=== PATIENT | female | born 1955 | race Caucasian/White ===

== ENCOUNTER 2021-02-15 21:17 | Emergency (ER) | payer BC, SELFPAY ==
--- NOTE | 2021-02-15 | ECG_ITS ---
Test Reason : CHEST PAIN Blood Pressure : / mmHG Vent. Rate : 063 BPM Atrial Rate : 063 BPM P-R Int : 190 ms QRS Dur : 086 ms QT Int : 424 ms P-R-T Axes : 010 -03 034 degrees QTc Int : 433 ms Normal sinus rhythm Septal infarct , age undetermined Inferior infarct , age undetermined Abnormal ECG No previous ECGs available Referred By: Generic ED Physician Electronically Signed By:Chang Olivo
--- NOTE | ~2021-02-15 | US_ITS ---
EXAMINATION: US ABDOMEN LIMITED CLINICAL INFORMATION: Epigastric, right upper quadrant pain. COMPARISON: None TECHNIQUE: Real-time imaging of the right upper quadrant abdominal viscera. FINDINGS: PANCREAS: Normal. LIVER: The liver is normal in size. The liver contour is normal. Diffusely increased hepatic echogenicity and sound attenuation. No focal hepatic lesion. There is no intrahepatic biliary duct dilatation seen. GALLBLADDER: Normal. The gallbladder is physiologically distended without evidence of stones, sludge, polyps, wall thickening or pericholecystic fluid. COMMON BILE DUCT: Normal in caliber measuring 0.4 cm in diameter. RIGHT KIDNEY: Normal. No hydronephrosis. No renal calculi or focal parenchymal lesions. The kidney measures 11.1 cm in maximum dimension. FREE FLUID: None. US/US abdomen limited IMPRESSION: There is diffusely increased hepatic echogenicity and sound attenuation consistent with diffuse hepatic steatosis.
[2021-02-15 21:22] VITALS: BP 140/75; BP 155/77; PULSE 62; PULSE 80; RESP 18; TEMP 36.6; O2SAT 97; O2SAT 98; BMI 34.5
[2021-02-15 21:35] VITALS: BP 155/77; PULSE 62; RESP 18; TEMP 36.7; O2SAT 97
--- NOTE | 2021-02-15 21:45 | ED.CHESTPAIN ---
HPI - Chest Pain General Chief Complaint: Chest Pain Stated Complaint: chest pain Time Seen by Provider: 02/15/21 21:35 Source: patient Mode of arrival: ambulatory Limitations: no limitations History of Present Illness HPI narrative: patient comes to emergency room complaining of epigastric pain. Patient states it started this morning, patient states the pain has been there on time, but recently started getting more sharp. Patient denies vomiting having any diarrhea. When patient was coming to Emergency Room EMS gave her 324 mg of aspirin. MD complaint: chest pain Related Data Previous Rx's Medication Instructions Recorded omeprazole 20 mg PO DAILY #14 tab 02/15/21 Allergies Allergy/AdvReac Type Severity Reaction Status Date / Time Penicillins Allergy Severe Swelling Verified 02/15/21 21:28 Review of Systems Review of Systems: Constitutional : No Weight loss, No Fever, No Chills, No Night Sweats, No Fatigue, No Malaise ENT/Mouth : No Hearing loss, No Ear Pain, No Nasal Congestion, No Sinus Pain, No Hoarseness, No sore throat, No Rhinorrhea, No Swallowing Difficulty Eyes: No Eye Pain, No Swelling, No Redness, No Foreign Body, No Discharge, No Vision Changes Cardiovascular : Epigastric pain, chest pressure, No SOB, No Dyspnea on Exertion, No Orthopnea, No Edema, No Palpitations Respiratory : No Cough, No Sputum, No Wheezing, No Smoke Exposure, No Dyspnea Gastrointestinal : No Nausea, No Vomiting, No Diarrhea, No Constipation, complaining of epigastric pain, No Hematochezia, No Melena Genitourinary : no irregular bleeding, No Dysuria, No Urinary Frequency, No Hematuria, No Urinary Incontinence, No Urgency, No Flank Pain, No Urinary Flow Changes, No Hesitancy Musculoskeletal : No joint pain, No Myalgias, No Joint Swelling Skin : No Skin Lesions, No rash Neuro : No Weakness, No Numbness, No Paresthesias, No Loss of Consciousness, No Dizziness, No Headache Psych : No Anxiety/Panic, No Depression, No SI/HI/AH/VH, No Social Issues, Heme/Lymph: No Bruising, No Bleeding,No Lymphadenopathy Endocrine : No Polyuria, No Polydipsia, No Temperature Intolerance PMFSH Past Medical History Medical History HTN (hypertension) Hyperlipemia Surgical History History of bladder surgery History of partial hysterectomy Hx of removal of ovary Social History Social History Advance Directives: No Advance Directives Information Provided: Yes Patient : No Physical Exam Vital Signs: Vital Signs: Last Vital Signs Temp 98.0 F 02/15/21 21:35 Pulse 62 02/15/21 21:35 Resp 18 02/15/21 21:35 BP 155/77 H 02/15/21 21:35 Pulse Ox 97 02/15/21 21:35 Body Mass Index 34.5 Appearance: Alert. Oriented X3. No acute distress. Eyes: Pupils equal, round and reactive to light. ENT: Pharynx normal. Neck: Normal inspection. Neck supple. No lymph nodes noted. No crepitus CVS: Normal heart rate and rhythm. Pulses normal. Normal S1 and S2 Respiratory: No respiratory distress. Breath sounds normal. No Wheezing. No rales Abdomen: Soft , mild positive Ambriz sign, No rigidity. No distention. good BS x4 Skin: Skin warm and dry. Normal skin color. Normal skin turgor. Extremities: No lower extremity edema. No lower extremity edema. No Lacerations. No Rash Neuro: Oriented X 3. No motor deficit. No sensory deficit. Moving all extermities. No slurred speech. Course Reevaluation(s) Reevaluation #1: I discussed the labs and imaging with the patient, no acute findings. Patient may have peptic ulcer disease. At this time, patient has no pain MDM - Chest Pain Lab Data Result diagrams: 02/15/21 22:15 02/15/21 22:15 Labs: Lab Results 02/15/21 02/15/21 02/15/21 Range/Units 22:15 22:15 22:15 WBC 8.0 (4.8-10.8) X10*3/uL RBC 4.29 (4.20-5.50) X10*6/uL Hgb 13.4 (12.0-16.0) g/dl Hct 39.9 (37-47) % MCV 93.0 (80-98) fL MCH 31.2 (27.0-33.0) pg MCHC 33.6 (31.0-35.0) g/dl RDW 12.4 (11.0-16.0) % Plt Count 199 (160-400) X10*3/uL MPV 10.9 (9.4-12.3) fL Immature Gran % (Auto) 0.3 (0.0-0.4) % Neut % (Auto) 72.9 (45-73) % Lymph % (Auto) 18.0 L (20-40) % [place] % (Auto) 7.9 (2-11) % Eos % (Auto) 0.5 (0-4) % Baso % (Auto) 0.4 (0-2) % Lymph # (Auto) 1.4 (1.2-4.9) X10*3/uL [place] # (Auto) 0.6 (0.1-1.2) X10*3/uL Eos # (Auto) 0.0 (0.0-0.4) X10*3/uL Baso # (Auto) 0.0 (0.0-0.2) X10*3/uL Abs Immat Gran (auto) 0.02 (0.00-0.03) X10*3/uL Absolute Neuts (auto) 5.8 (2.0-8.3) X10*3/uL Absolute Nucleated RBC 0.000 (0.0-0.012) X10*3/uL Nucleated RBC % (auto) 0.0 (0.0-0.2) /100WBC Sodium 140 (135-145) mmol/L Potassium 4.0 (3.3-5.1) mmol/L Chloride 105 (96-108) mmol/L Carbon Dioxide 25 (22-29) mmol/L Anion Gap 14 (12-20) BUN 15 (9-16) mg/dL Creatinine 0.77 (0.5-1.4) mg/dL Estim Creat Clear Calc 87.8 Estimated GFR > 60 Random Glucose 118 H (60-115) mg/dL Calcium 9.6 (8.4-10.2) mg/dL Total Bilirubin 0.7 (0.0-1.0) mg/dL Direct Bilirubin 0.3 (0.0-0.5) mg/dL AST 19 (5-31) U/L ALT 18 (0-31) U/L Alkaline Phosphatase 95 (39-117) U/L Troponin I High Sens (<3.5-17.0) ng/L Total Protein 6.9 (6.5-8.0) g/dL Albumin 4.3 (3.5-5.0) g/dL Lipase 15 (8-78) U/L 02/15/ Range/Units 22:15 WBC (4.8-10.8) X10*3/uL RBC (4.20-5.50) X10*6/uL Hgb (12.0-16.0) g/dl Hct (37-47) % MCV (80-98) fL MCH (27.0-33.0) pg MCHC (31.0-35.0) g/dl RDW (11.0-16.0) % Plt Count (160-400) X10*3/uL MPV (9.4-12.3) fL Immature Gran % (Auto) (0.0-0.4) % Neut % (Auto) (45-73) % Lymph % (Auto) (20-40) % [place] % (Auto) (2-11) % Eos % (Auto) (0-4) % Baso % (Auto) (0-2) % Lymph # (Auto) (1.2-4.9) X10*3/uL [place] # (Auto) (0.1-1.2) X10*3/uL Eos # (Auto) (0.0-0.4) X10*3/uL Baso # (Auto) (0.0-0.2) X10*3/uL Abs Immat Gran (auto) (0.00-0.03) X10*3/uL Absolute Neuts (auto) (2.0-8.3) X10*3/uL Absolute Nucleated RBC (0.0-0.012) X10*3/uL Nucleated RBC % (auto) (0.0-0.2) /100WBC Sodium (135-145) mmol/L Potassium (3.3-5.1) mmol/L Chloride (96-108) mmol/L Carbon Dioxide (22-29) mmol/L Anion Gap (12-20) BUN (9-16) mg/dL Creatinine (0.5-1.4) mg/dL Estim Creat Clear Calc Estimated GFR Random Glucose (60-115) mg/dL Calcium (8.4-10.2) mg/dL Total Bilirubin (0.0-1.0) mg/dL Direct Bilirubin (0.0-0.5) mg/dL AST (5-31) U/L ALT (0-31) U/L Alkaline Phosphatase (39-117) U/L Troponin I High Sens < 3.5 (<3.5-17.0) ng/L Total Protein (6.5-8.0) g/dL Albumin (3.5-5.0) g/dL Lipase (8-78) U/L Imaging Data US - abdomen: Radiologist's impression: FINDINGS: PANCREAS: Normal. LIVER: The liver is normal in size. The liver contour is normal. Diffusely increased hepatic echogenicity and sound attenuation. No focal hepatic lesion. There is no intrahepatic biliary duct dilatation seen. GALLBLADDER: Normal. The gallbladder is physiologically distended without evidence of stones, sludge, polyps, wall thickening or pericholecystic fluid. COMMON BILE DUCT: Normal in caliber measuring 0.4 cm in diameter. RIGHT KIDNEY: Normal. No hydronephrosis. No renal calculi or focal parenchymal lesions. The kidney measures 11.1 cm in maximum dimension. FREE FLUID: None. US/US abdomen limited IMPRESSION: There is diffusely increased hepatic echogenicity and sound attenuation consistent with diffuse hepatic steatosis. ECG Data ECG #1: Attestation: I personally reviewed and interpreted this ECG as follows: ( sinus rhythm, heart rate 63, no ST segment depression or elevation, no T-wave inversion, QTC 433) Discharge Plan Discharge Clinical Impression: Abdominal pain Qualifiers: Abdominal location: epigastric Qualified Code(s): R10.13 - Epigastric pain Patient Disposition: Home, Self-Care Instructions: Peptic Ulcer (ED), Abdominal Pain (ED) Additional Instructions: Please follow-up with your primary care physician tomorrow. If you have any worsening or new symptoms, please return to the emergency room or call 911 Prescriptions: New omeprazole 20 mg tablet,delayed release (DR/EC) 20 mg PO DAILY Qty: 14 RF: 0
[2021-02-15 22:24] LABS: MANUAL DIFF FLAG NO
[2021-02-15 22:25] LABS: Basophils Percent Auto 0.4 % (0-2); Eosinophils Percent Auto 0.5 % (0-4); Hematocrit 39.9 % (37-47); Hemoglobin 13.4 g/dl (12.0-16.0); Imm Gran Abs Auto 0.02 X10*3/uL (0.00-0.03); Imm Gran Pct Auto 0.3 % (0.0-0.4); Lymphocytes Absolute Auto 1.4 X10*3/uL (1.2-4.9); Mean Corpuscular HGB Conc 33.6 g/dl (31.0-35.0); Mean Corpuscular Hemoglobin 31.2 pg (27.0-33.0); Mean Platelet Volume 10.9 fL (9.4-12.3); Monocytes Absolute Auto 0.6 X10*3/uL (0.1-1.2); Monocytes Percent Auto 7.9 % (2-11); Neutrophils Absolute Auto 5.8 X10*3/uL (2.0-8.3); Neutrophils Percent Auto 72.9 % (45-73); Platelet Count 199 X10*3/uL (160-400); Red Blood Count 4.29 X10*6/uL (4.20-5.50); Red Cell Distribution Width 12.4 % (11.0-16.0)
[2021-02-15 22:44] LABS: Anion Gap 14 (12-20); Blood Urea Nitrogen 15 mg/dL (9-16); Calcium 9.6 mg/dL (8.4-10.2); Carbon Dioxide 25 mmol/L (22-29); Chloride 105 mmol/L (96-108); Creatinine Clr Calc Pharmacy 87.8; Estimated Glomerular Filt Rate > 60; Glucose Random 118 mg/dL (60-115); Sodium 140 mmol/L (135-145)
[2021-02-15 22:48] LABS: Alanine Aminotransferase 18 U/L (0-31); Albumin Level 4.3 g/dL (3.5-5.0); Alkaline Phosphatase 95 U/L (39-117); Aspartate Amino Transferase 19 U/L (5-31); Bilirubin Direct 0.3 mg/dL (0.0-0.5); Bilirubin Total 0.7 mg/dL (0.0-1.0); Lipase 15 U/L (8-78); Total Protein 6.9 g/dL (6.5-8.0)
[2021-02-15 22:51] LABS: Troponin-I High Sensitivity < 3.5 ng/L (<3.5-17.0)
== END 2021-02-16 00:38 | disposition home or self-care (01) ==
PROVIDERS: Emergency Provider Emergency Medicine; PCP Internal Medicine
DX: R10.13 Epigastric pain (principal); I10 Essential (primary) hypertension
CPT/HCPCS: 36415; 76705; 80048; 80076; 83690; 84484; 85025; 93005; 99283; 99284

== ENCOUNTER 2021-09-29 15:12 | Emergency (ER) | payer OTHER, SELFPAY ==
--- NOTE | ~2021-09-29 | CT_ITS ---
EXAMINATION: CT HEAD WITHOUT CONTRAST CT CERVICAL SPINE WITHOUT CONTRAST CLINICAL INFORMATION: Neck pain after falling. COMPARISON: None. TECHNIQUE: Contiguous axial imaging was performed from the skull base to vertex without intravenous administration of contrast. Contiguous axial imaging was performed from the upper chest through the skull base without intravenous administration of contrast. Coronal and sagittal reformats were obtained at the acquisition workstation. This CT examination was performed using dose optimization techniques as appropriate, variously including the following: *Automated exposure control *Adjustment of mA and/or kV according to patient size (this includes techniques or standardized protocols for targeted exams where dose is matched to indication/reason for exam; i.e. extremities or head) *Use of iterative reconstruction technique DLP: 381 mGy-cm FINDINGS: Head: There is no evidence of acute intracranial hemorrhage or edematous territorial infarction. A few foci of hypoattenuation in the periventricular and deep white matter are consistent with mild microangiopathy. Bravo-white matter differentiation is preserved. The ventricles are normal in size and configuration. No evidence for obstructive hydrocephalus. No abnormal mass effect or midline shift. No extra-axial fluid collections. No acute soft tissue or osseous abnormalities. 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 The mastoid air cells and paranasal sinuses are clear. Cervical Spine: The atlantooccipital and atlantoaxial articulations remain well aligned. Straightening of the normal cervical lordosis. Otherwise, there is anatomic alignment of the vertebral bodies and posterior elements. No evidence of acute fracture or subluxation. Moderate multilevel cervical spondylosis with disc space narrowing, osteophytes and facet arthropathy leading to varying degrees of neural foraminal encroachment and central canal stenosis. There is no prevertebral soft tissue swelling. There are prominent coarse calcifications in the right lobe of the thyroid. The remaining cervical soft tissues are normal in appearance. The lung apices demonstrate no abnormalities. CT/CT cervical spine wo con IMPRESSION: 1. No acute intracranial pathology. 2. No acute cervical spine fractures or malalignment. 3. Indeterminate calcifications in the right lobe of the thyroid, recommend correlation with a nonemergent thyroid ultrasound.
[2021-09-29 15:33] VITALS: BP 159/94; PULSE 67; RESP 18; TEMP 36.8; O2SAT 96; BMI 35.5
--- NOTE | 2021-09-29 16:16 | ED.FALL ---
HPI - Fall General Chief Complaint: Fall Stated Complaint: fell on her neck at work Time Seen by Provider: 09/29/21 16:05 Source: patient Mode of arrival: ambulatory Limitations: no limitations History of Present Illness HPI Narrative: 66-year-old female presents to ED for neck pain after falling. Patient states around 09:00 she is walking and ice and she slipped and fell between 2 parked cars. Patient denies her body hitting any of the cars. Patient states she fell straight to the ground on her head. Once again cars were parked and did not hit her or run over her. Patient denies no other complaints. Patient is not on any blood thinners. Patient states no chest pain, shortness of breath, coughing up blood, pain extremities, rectal bleeding, dizziness, or weakness. Related Data Previous Rx's Medication Instructions Recorded omeprazole 20 mg tablet,delayed 20 mg PO DAILY #14 tab 02/15/21 release cyclobenzaprine 10 mg tablet 10 mg PO TID PRN #21 tab 09/29/21 naproxen 500 mg tablet 500 mg PO BID PRN 10 Days #20 tab 09/29/21 prednisone 20 mg tablet 60 mg PO DAILY 5 Days #15 tab 09/29/21 Allergies Allergy/AdvReac Type Severity Reaction Status Date / Time Penicillins Allergy Severe Swelling Verified 09/29/21 15:33 Review of Systems Review of Systems: Upper neck upper back Yes all other systems are reviewed and are negative [facility] Past Medical History Medical History HTN (hypertension) Hyperlipemia Surgical History History of bladder surgery History of partial hysterectomy Hx of removal of ovary Social History Social History Advance Directives: No Advance Directives Information Provided: Yes Patient : No Physical Exam Vital Signs: Vital Signs: Last Vital Signs Temp 98.2 F 09/29/21 15:33 Pulse 72 09/29/21 17:47 Resp 16 09/29/21 17:47 BP 126/80 09/29/21 17:47 Pulse Ox 96 09/29/21 17:47 BMI result Body Mass Index 35.5 Const: General: cooperative, healthy appearing, comfortable, no acute distress, well developed, alert and awake Orientation/consciousness: patient oriented x3 HENMT: Head: Yes normal to inspection, Yes No palpable skull fracture present, Yes normocephalic and No atraumatic Eyes: General: appearance normal, both eyes and all related structures Neck: Neck: Yes normal visual inspection, Yes full ROM, Yes no lymphadenopathy, Yes no meningeal signs, Yes trachea midline, Yes supple, No anterior neck swelling and Yes tender (posterior cervical tenderness on palpation) Neck images: 1. posterior cervical spine tenderness on palpation. Chest: Chest palpation & inspection: normal inspection of the chest Resp: Effort & Inspection: normal respiratory effort and able to speak in complete sentences Cardio: Jugular venous distension: no JVD Heart sounds: S1 normal heart sound present and S2 normal heart sound present GI: Inspection: Yes normal to inspection and No abdominal wall ecchymosis Palpation (GI): Soft to palpation, not firm, nontender, no guarding and not rigid : General: No CVA tenderness and Yes no CVA tenderness Back/Spine/Pelvis: Back: no CVA tenderness, No CVA tenderness and No back tenderness Skin: General skin exam: no rashes or lesions noted and elasticity normal Neuro: General: patient oriented x3, gait normal, no meningeal signs and CN's II-XI intact bilaterally Cranial nerves: Yes CN's II-XII intact bilaterally Extrem: General: Yes normal to inspection and Yes full ROM Psych: Appearance: grossly normal, well kempt and not disheveled Course Course Course Narrative: Patient will be sent for head and neck CT scan. Tylenol ordered Reevaluation(s) Reevaluation #1: Images came back negative for any fracture or brain bleeds. Patient will be discharged with NSAIDs and muscle relaxers Time: 17:51 MDM - Fall [facility] Narrative Medical decision making narrative: Fall. Neck pain. Discharge Plan Discharge Clinical Impression: Neck pain, Fall, Head injury Patient Disposition: Home, Self-Care Instructions: Head Injury (ED), Acute Neck Pain (ED) Additional Instructions: Cervical spine CT and head CT came back normal. CT scan shows calcification on the right thyroid. Recommend follow-up with primary care provider for ultrasound of thyroid. Return to the ED for nausea, vomiting, tingling of upper extremities, abdominal pain, chest pain, shortness of breath, bleeding, vomiting blood severe headache, worsening neck pain, or any other concerning symptoms. Please follow-up with [facility]. Prescriptions: New cyclobenzaprine 10 mg tablet 10 mg PO TID PRN (Reason: muscle spasm) Qty: 21 0RF Rx Instructions: side effect is drowsiness. Do not take at work or while driving. naproxen 500 mg tablet 500 mg PO BID PRN (Reason: pain) 10 Days Qty: 20 0RF prednisone 20 mg tablet 60 mg PO DAILY 5 Days Qty: 15 0RF No Action omeprazole 20 mg tablet,delayed release (DR/EC) 20 mg PO DAILY Qty: 14 0RF Referrals: [facility] [Outside] - 2 days (Fall at work.) Stand Alone Forms: Work/School Release Interventions: ED Discharge Assessment Last Done: 09/29/21 18:11 Discharge Date/Time: 09/29/21 18:11 Print Language: Albanian
[2021-09-29] MEDS: Acetaminophen 325 MG TABLET 650 MG PO (16:19)
[2021-09-29 17:47] VITALS: BP 126/80; PULSE 72; RESP 16; O2SAT 96
[2021-09-29] MEDS: Ibuprofen 800 MG TABLET PO (17:55)
== END 2021-09-29 18:11 | disposition home or self-care (01) ==
PROVIDERS: Emergency Provider Emergency Medicine; PCP Internal Medicine
DX: S09.90XA Unspecified injury of head, initial encounter (principal); W00.0XXA Fall on same level due to ice and snow, initial encounter; M54.2 Cervicalgia; Y93.89 Activity, other specified; Y92.014 Private driveway to single-family (private) house as the place of occurrence of the external cause; Y99.9 Unspecified external cause status
CPT/HCPCS: 70450; 72125; 99284

== ENCOUNTER → 2021-10-02 09:17 | Outpatient (BNVA) | payer OTHER, SELFPAY | PROVIDERS: PCP Internal Medicine; Visit Provider Physician Assistant | DX: S09.90XA Unspecified injury of head, initial encounter (principal); S19.9XXA Unspecified injury of neck, initial encounter; W19.XXXA Unspecified fall, initial encounter | CPT/HCPCS: 99203 ==

== ENCOUNTER 2025-07-08 18:19 | Emergency (ER) | payer MEDICARE, SELFPAY ==
--- OUTSIDE RECORDS SUMMARY | 2025-07-03 09:00 | XMS_ITS | Encounter Summary ---
Author Organization [facility] Address [address] [place] [address] Care Team Providers Care Interlocking Installer Name Role Phone Tuyet Schofield MD Primary Care Pr ovider Reason for Visit * Imaging (Routine) - Closed Specialty Diagnoses / Procedures Referred By Contac t Referred To Contact Cardiology Diagnoses PVC (premature ventricular contraction) Palpitations Procedures Transthoracic echocardiogram (TTE) complete with PRN contrast, bubble, strain, and 3D order panel TN TTE W 2D IMAGE COMPLETE W DOPPLER ECHO & COLOR FLOW DOPPLER ECHO TN ROSIO 2D COMPLETE W/CONTRAST OR W & WO CONTRAST WITH DOPPLER Lillian Locke MD [address] [place] [address] Dr Champion [address] [place] [phone] Phone: tel: fax: [facility] Referral ID Status Reason Start Date Expiration Date Visits Re quested Visits Authorized [id number] Closed 12/28/2024 12/28/2025 1 1 Encounter Details Date Type Department Care Team (Latest Contact Info) Description 07/03/2025 9:00 AM EST Ancillary Procedure [facility] - [address] [place] [phone] PVC (premature ventricular contraction); Palpitations Social History Tobacco Use Types Packs/Day Years Used Date Smoking Tobacco: Never Smokeless Tobacco: Never Alcohol Use Standard Drinks/Week Comments Yes 0 (1 standard drink = 0.6 oz pur e alcohol) wine - 1 glass per wk Housing Instability Answer Date Recorde d Are you worried that in the next 2 months you may not have stable housing? Patient declined 05/18/2025 Food Access & Nutrition Answer Date Rec orded Do you have access to a vari ety of food including fruits and vegetables? Patient declined 05/18/2025 Health Literacy Answer Date Recorded How often do you need to hav e someone help you when you read instructions, pamphlets, or other written material from your doctor or pharmacy? Patient declined 05/18/2025 Caregiver: How often do you need to have someone help you when you read instructions, pamphlets, or other written material from your doctor or pharmacy? Not on file 025 Financial Risk Answer Date Recorded How hard is it for you to pa y for the very basics like food, housing, medical care, and air conditioning / heating? Patient declined 05/18/2025 Transportation Answer Date Recorded Has the lack of transportati on kept you from meetings, work, or from getting things needed for daily living? Patient declined 05/18/2025 Has the lack of transportati on kept you from medical appointments or from getting medications? Patient declined 05/18/2025 Social Isolation Answer Date Recorded How often do you feel lonely or isolated from those around you? Patient declined 05/18/2025 Food Risk Answer Date Recorded Within the past 12 months we worried whether our food would run out before we got money to buy more. Patient declined 025 Within the past 12 months th e food we bought just didn't last and we didn't have money to get more. Patient declined 04/24 Dependent Care Answer Date Recorded Do you need help finding or paying for care for your loved ones. For example, child protective investigator or elderly care for an older adult? Patient declined 05/18/2025 Education Answer Date Recorded Do you think completing more education or training, like finishing a GED, going to college, or learning a trade, would be helpful for you? Patient declined 05/18/2025 Employment and Income Answer Date Recor ded During the last four weeks, have you been actively looking for work? Patient declined 05/18/2025 Living Situation Answer Date Recorded What is your living situation? Unrecognized valu e 05/18/2025 Comments No Sex and Gender Information Value Date Recorded Sex Assigned at Not on file Legal Sex Female 10:22 PM EST Gender Identity Not on file Sexual Orientation Not on file documented as of this encounter Last Filed Vital Signs Vital Sign Reading Time Taken Comments Blood Pressure 141/84 07/03/2025 9:12 AM EST Pulse - - Temperature - - Respiratory Rate - - Oxygen Saturation - - Inhaled Oxygen Concentration - - Weight 100 kg (221 lb) 07/03/2025 9:12 AM EST Height 165.1 cm (5' 5 ) 07/03/2025 9:12 AM EST Body Mass Index 36.78 07/03/2025 9:12 AM EST documented in this encounter Plan of Treatment Upcoming Encounters Date Type Department Care Team (Late st Contact Info) Description 08/14/2025 11:00 AM EST Office Visit Urogynecology [address] [phone] Linda Sharp MD [address] [place] [address] [address] [place] [address] 09/03/2025 1:10 PM EST Office Visit [facility] [address] [place] [phone] Felicia Cornell NP [address] [place] [address] Dr Champion [address] [place] [phone] 09/20/2025 2:00 PM EST Consult [facility] - [place] [address] [facility] [address] [place] [address] Arun Pierce MD [address] [place], [place] [phone] 10/30/2025 3:15 PM EDT Office Visit Bariatric Surgery - [place] [address] [facility] [address] [place] [address] Michelle García PA [address] [place] [phone] 11/15/2025 11:00 AM EDT Office Visit [facility] [address] [phone] Tuyet Schofield MD 4 [place], [place] documented as of this encounter Procedures Procedure Name Priority Date/Time Associated Diagnosis Comments TRANSTHORACIC ECHOCARDIOGRAM (TTE) COMPLETE W/ CONTRAST Routine 07/03/2025 2:08 PM EST PVC (premature ventricular contraction) Palpitations documented in this encounter Results * (ABNORMAL) TRANSTHORACIC ECHOCARDIOGRAM (TTE) COMPLETE W/ CONTRAST (07/03/2025 2:08 PM EST) Left Atrium Minor [place] 6.1 cm CV PACS Left Atrium Major [place] 6.3 cm CV PACS LA Area Sys (A2C) 25 cm2 CV PACS LA Area Sys (A4C) 25 cm2 CV PACS LA Volume (BP) 82 mL CV PACS RA Area 13.3 cm2 CV PACS RA 2D Volume 32 mL CV PACS AV Mean Gradient 1 mmHg CV PACS AV Mean Gradient 1 mmHg CV PACS Ao VTI 21.3 cm CV PACS AV Peak Arturo 0.9 m/s CV PACS AV Peak Gradient 3 mmHg CV PACS AV Area Continuity Equation 3.9 cm2 CV PACS AV Area Peak Velocity 4.1 cm2 CV PACS Aortic Arch 2.8 cm CV PACS Ascending Aorta 3.4 cm CV PACS Aortic Sinus Valsalva 3.5 cm CV PACS IVC Proximal 1.5 cm CV PACS IVSD 1.1(A) 0.6 - 0.9 cm CV PACS LVIDD 5.3(A) 3.8 - 5.2 cm CV PACS LVIDS 3.4 2.2 - 3.5 cm CV PACS LVOT Diameter 2.4 cm CV PACS LVOT Mean Arturo 0.5 m/s CV PACS LVOT Mean Grad 1 mmHg CV PACS LVOT Mean Grad 1 mmHg CV PACS LVOT Peak VTI 18.4 cm CV PACS LVOT Peak Arturo 0.8 m/s CV PACS LVOT Peak Gradient 2 mmHg CV PACS LVPWD 1.1(A) 0.6 - 0.9 cm CV PACS MV E' Tissue Velocity Lateral 9 cm/s CV PACS MV E' Tissue Velocity Septal 5 cm/s CV PACS LVOT Area 4.5 cm2 CV PACS LVOT Stroke Volume 83 mL CV PACS MV Deceleration [place] 4.0 m/s2 CV PACS E Wave Deceleration Time 183 119 - 242 ms CV PACS MV PHT 54 ms CV PACS MV Peak A Arturo 0.80 m/s CV PACS MV Peak E Arturo 0.78 m/s CV PACS MV Mean Gradient 1 mmHg CV PACS MV Mean Gradient 1 mmHg CV PACS MV Mean Gradient 1 mmHg CV PACS MV Mean Gradient 1 mmHg CV PACS MV VTI 26.3 cm CV PACS Mitral Valve Max Velocity 0.9 m/s CV PACS MV Peak Gradient 3 mmHg CV PACS MV Area PHT 4.1 cm2 CV PACS MV Area Continuity Equation 3.2 cm2 CV PACS PV Acceleration Time 60 ms CV PACS PV Acceleration Time 127 ms CV PACS PV Acceleration Time 94 ms CV PACS PV Mean Gradient 1 mmHg CV PACS PV VTI 13.5 cm CV PACS PV Peak Velocity 0.6 m/s CV PACS PV Peak Gradient 1 mmHg CV PACS RV Diastolic Basal Dimension 3.9 2.5 - 4.1 cm CV PACS RV S' 8 cm/s CV PACS TAPSE 18 mm CV PACS TR Peak Velocity 2.17 m/s CV PACS TR Peak Gradient 19 mmHg CV PACS E/E' Ratio Septal 16 CV PACS E/E' Ratio Averaged 12 CV PACS LVOT Stroke Index 40 mL/m2 CV PACS Relative Wall Thickness ratio 0.42 CV PACS LVOT:AV VTI Index 0.86 CV PACS FS 36 % CV PACS LV Mass 2D 228 g CV PACS Ascending Aorta Index 1.65 cm/m2 CV PACS MV VTI:LVOT VTI ratio 1.4 CV PACS LVOT flow 226 mL/s CV PACS RA 2D Volume Index 16 mL/m2 CV PACS [place] Index (VTI) 1.90 cm2/m2 CV PACS [place] Index (Pk Arturo) 1.99 cm2/m2 CV PACS LVIDD Index 2.57 cm/m2 CV PACS LVIDS Index 1.65 cm/m2 CV PACS AV Velocity Ratio 0.89 CV PACS E/A Ratio 1.0 CV PACS E/E' Ratio Lateral 9 CV PACS LA Volume Index (BP) 40 mL/m2 CV PACS LV Mass Index 2D 111 g/m2 CV PACS BSA 2.14 m2 CV PACS Right Ventricular Peak Systolic Pressure 22 mmHg CV PACS Est. RA Pressure 3 mmHg CV PACS Anatomical Region Laterality Modality Ultrasound Narrative 07/06/2025 10:30 AM EST Left Ventricle: Left ventricle cavity size is normal. There is mild concentric hypertrophy. Systolic function is normal with an ejection fraction of 60-65%. There are no regional LV wall motion abnormalities. Indeterminate diastolic function. Right Ventricle: Right ventricle cavity appears normal. Systolic function is normal. Normal TAPSE (> 17 mm). Left Atrium: Left atrium cavity is mildly dilated. Right Atrium: Right atrium cavity is normal. Mitral Valve: There is trace regurgitation. No previous echocardiogram available for comparison. Left Ventricle Left ventricle cavity size is normal. There is mild concentric hypertrophy. Systolic function is normal with an ejection fraction of 60-65%. There are no regional LV wall motion abnormalities. Indeterminate diastolic function. Right Ventricle Right ventricle cavity appears normal. Systolic function is normal. Normal TAPSE (> 17 mm). Left Atrium Left atrium cavity is mildly dilated. Right Atrium Right atrium cavity is normal. IVC/SVC Inferior vena cava structure is normal. RA pressures is estimated to be 3 mmHg (IVC diameter <21 mm and decreases >50% during inspiration). Mitral Valve The leaflets are mildly thickened. There is mild annular calcification. There is trace regurgitation. There is no evidence of mitral valve stenosis. Tricuspid Valve Tricuspid valve structure is normal. There is no significant regurgitation. The right ventricular systolic pressure is normal. Aortic Valve Number of aortic valve cusps cannot be determined. The leaflets are mildly thickened. There is no regurgitation or stenosis. Pulmonic Valve There is trace pulmonic valve regurgitation. Ascending Aorta The aorta appears normal in size. Pericardium Pericardium appears normal. There is no pericardial effusion. Study Details Overall the study quality was technically difficult. Definity contrast was given to enhance imaging. us Lillian Locke MD CV ECHO PROCEDURES Final Resul t documented in this encounter Visit Diagnoses Diagnosis PVC (premature ventricular contraction) Other premature beats Palpitations documented in this encounter Administered Medications Inactive Administered Medications - up to 3 most recent administrations Medication Order MAR Action Action Date Dose Rate Site perflutren lipid microsphere (DEFINITY) 1.3 mL in sodium chloride 0.9% 8.7 mL injection 10 mL, intravenous, Administer over 10 Minutes, Once in imaging, Starting on Wed07/03/25 at 1409, For 1 dose Given 07/03/2025 2:09 PM EST 3 mL documented in this encounter Orders Medications Ordered That Amaury ht Not Have Been Administered Count Last Ordered Date First Ordered Date perflutren lipid microsphere (DEFINITY) 1.3 mL in sodium chloride 0.9% 8.7 mL injection 1 07/03/2025 documented in this encounter Additional Health Concerns Assessment Noted Time PHQ-9 Depression Total Score: 0 05/18/20 25 10:26 AM EDT documented as of this encounter Care Teams Interlocking Installer Relationship Specialty Start Date End Date Tuyet Schofield MD [address] [place] [address] PCP - General Internal Medicine 03/17/22 documented as of this encounter
--- OUTSIDE RECORDS SUMMARY | 2025-07-05 10:20 | XMS_ITS | Encounter Summary ---
Author Organization [facility] Address [address] [place] [address] Care Team Providers Care Cloth Inspector Name Role Phone Tuyet Schofield MD Primary Care Pr ovider Reason for Referral * Imaging (Routine) - Authorized Specialty Diagnoses / Procedures Referred By Contac t Referred To Contact Radiology Diagnoses Abnormal liver ultrasound Procedures MR Abdomen wo Contrast Felicia Goldsmith PA [address] [place], [place] Phone: tel: fax: [address] Phone: tel: Referral ID Status Reason Start Date Expiration Date V isits Requested Visits Authorized [id number] Authorized 06/07/2025 06/07/2026 1 1 Reason for Visit * Imaging (Routine) - Authorized Specialty Diagnoses / Procedures Referred By Contac t Referred To Contact Radiology Diagnoses Abnormal liver ultrasound Procedures MR Abdomen wo Contrast Felicia Goldsmith PA [address] [place] [address] Phone: tel: fax: [address] Phone: tel: Referral ID Status Reason Start Date Expiration Date V isits Requested Visits Authorized [id number] Authorized 06/07/2025 06/07/2026 1 1 Encounter Details Date Type Department Care Team (Latest Contact Info) Description 07/05/2025 10:20 AM EST - 07/05/2025 11:[address] [facility] Hospital Encounter Radiology Department - [address] [phone] Abnormal liver ultrasound Discharge Disposition: Home or Self Care Social History Tobacco Use Types Packs/Day Years [...] care for your loved ones. For example, vocational childcare teacher or elderly care for an older adult? [...] on file documented as of this encounter Medications at Time of Discharge amLODIPine (NORVASC) 10 mg tabletIndications: Primary hypertension Take 1 tablet (10 mg total) by mouth 1 (one) time each day. 90 each 1 05/18/2025 aspirin 81 mg EC tablet Take 1 tablet (81 mg total) by mouth 1 (one) time each day. atorvastatin (LIPITOR) 10 mg tabletIndications: Hypercholesterolem ia Take 1 tablet (10 mg total) by mouth at bedtime. 90 each 1 05/18/2025 6 calcium carb/vit D3/minerals (CALCIUM-VITAMIN D ORAL) Take by mouth. 09/25/2022 cholecalciferol (VITAMIN D-3) 50 mcg (2,000 unit) capsule Take 1 capsule (2,000 Units total) by mouth 1 (one) time each day. 05/17/2024 meloxicam (Mobic) 15 mg tablet Take 1 tablet (15 mg total) by mouth 1 (one) time each day if needed. 05/17/2024 metoprolol tartrate (LOPRESSOR) 25 mg tablet Take 1 tablet (25 mg total) by mouth 1 (one) time each day if needed (palps). documented as of this encounter Discharge Disposition Disposition Code Departure Means Destination Home or Self Care documented in this encounter Plan of Treatment Upcoming Encounters Date Type Department Care Team (Late st Contact Info) Description 08/14/2025 11:00 AM EST Office Visit Urogynecology - [place] [address] [place], [place] [phone] Linda Sharp MD [address] [place] [address] Rd [address] [place] [address] 09/03/2025 1:10 PM EST Office Visit [facility] - [facility] [address] [place] [phone] Felicia Cornell NP [address] [place] [address] Dr Champion [address] [place] [phone] 09/20/2025 2:00 PM EST Consult [facility] - [place] 175 [facility] [address] [place] [phone] Arun Pierce MD 175 [place], [place] [phone] 10/30/2025 3:15 PM EDT Office Visit Bariatric Surgery - [place] 175 [facility] [address] [place] [phone] Michelle García PA [address] [place] [phone] 11/15/2025 11:00 AM EDT Office Visit Adult Medicine [facility] [address] [place] [address] Tuyet Schofield MD [address] [place] [phone] documented as of this encounter Procedures Procedure Name Priority Date/Time Associated Diagnosis Comments MR ABDOMEN WO CONTRAST Routine 07/05/2025 11:23 AM EST Abnormal liver ultrasound documented in this encounter Results * MR Abdomen wo Contrast (07/05/2025 11:23 AM EST) Anatomical Region Laterality Modality Body Magnetic Resonan ce 07/05/2025 2:3 6 PM EST Impressions 07/05/2025 2:50 PM EST Hepatic steatosis. 0.6 cm cyst left lobe of the liver. No focal liver lesion identified to correspond to the ultrasound finding in the right lobe. Follow-up right upper quadrant ultrasound in 6 months is suggested. Normal MRCP. -------- FINAL REPORT -------- Dictated By: Vijaya Mendez Dictated Date: 07/05/2025 14:36 ET Assigned Physician: Vijaya Mendez Reviewed and Electronically Signed By: Vijaya Mendez Signed Date: 07/05/2025 14:50 ET Workstation ID: [id number] Transcribed By: Self Edit Transcribed Date: 07/05/2025 14:36 ET Narrative 07/05/2025 2:50 PM EST MRI ABDOMEN WITHOUT CONTRAST; MRCP HISTORY: Mass versus focal fatty sparing. MRI suggested for ultrasound abdomen. Technique: Multiplanar and multi sequential MR imaging of the abdomen per department protocol. Routine noncontrast MRCP pulse sequences were also obtained. The study is limited by motion. PRIOR: Abdominal ultrasound 05/31/2025. FINDINGS: Liver: There is a 0.6 cm T2 hyperintense lesion left lobe of the liver, corresponding to the cyst seen on the ultrasound. There are at least 3 other tiny T2 hyperintensities scattered in the liver, and these may represent cysts as well. There is diffuse decreased signal of the liver on the out of phase sequence consistent with diffuse fatty infiltration.. No intrahepatic biliary dilatation is seen. No calculi are seen within the extra- or intra-hepatic biliary system. Gallbladder: Unremarkable. Bile ducts: Common bile duct measures 5 millimeters in diameter. Pancreatic duct has a normal course and caliber. Pancreas: Unremarkable . Spleen: Unremarkable. Adrenal glands: Unremarkable . Kidneys: There is a 0.9 cm rounded hyperintense lesion in the midpole the right kidney, statistically representing a cyst. There are T2 hyperintensities likely representing parapelvic cysts in both kidneys. Stomach and visualized bowel: Unremarkable. Mesentery: Normal. Lymph nodes: Unremarkable. Vascular structures: Unremarkable. Free fluid: None. Abdominal wall: Unremarkable. Bones: Unremarkable. Lung bases: Clear. Procedure Note Vijaya Mendez MD - 07/05/2025 MRI ABDOMEN WITHOUT CONTRAST; MRCP HISTORY: Mass versus focal fatty sparing. MRI suggested for ultrasoundabdomen. Technique: Multiplanar and multi sequential MR imaging of the abdomen perdepartment protocol. Routine noncontrast MRCP pulse sequences were alsoobtained. The study is limited by motion. PRIOR: Abdominal ultrasound 05/31/2025. FINDINGS: Liver: There is a 0.6 cm T2 hyperintense lesion left lobe of the liver,corresponding to the cyst seen on the ultrasound. There are at least 3other tiny T2 hyperintensities scattered in the liver, and these mayrepresent cysts as well. There is diffuse decreased signal of the liver onthe out of phase sequence consistent with diffuse fatty infiltration.. Nointrahepatic biliary dilatation is seen. No calculi are seen within theextra- or intra-hepatic biliary system. Gallbladder: Unremarkable. Bile ducts: Common bile duct measures 5 millimeters in diameter.Pancreatic duct has a normal course and caliber. Pancreas: Unremarkable . Spleen: Unremarkable. Adrenal glands: Unremarkable . Kidneys: There is a 0.9 cm rounded hyperintense lesion in the midpole theright kidney, statistically representing a cyst. There are [id number] likely representing parapelvic cysts in both kidneys. Stomach and visualized bowel: Unremarkable. Mesentery: Normal. Lymph nodes: Unremarkable. Vascular structures: Unremarkable. Free fluid: None. Abdominal wall: Unremarkable. Bones: Unremarkable. Lung bases: Clear. IMPRESSION: Hepatic steatosis. 0.6 cm cyst left lobe of the liver. No focal liverlesion identified to correspond to the ultrasound finding in the rightlobe. Follow-up right upper quadrant ultrasound in 6 months issuggested. Normal MRCP. -------- FINAL REPORT -------- Dictated By: Vijaya Mendez Dictated Date: 07/05/2025 14:36 ET Assigned Physician: Vijaya Mendze Reviewed and Electronically Signed By: Vijaya Mendez Signed Date: 07/05/2025 14:50 ET Workstation ID: [id number] Transcribed By: Self Edit Transcribed Date: 07/05/2025 14:36 ET us Felicia MOREL IM MRI PROCEDURES Final Resu lt documented in this encounter Visit Diagnoses Diagnosis Abnormal liver ultrasound documented in this encounter Additional Health Concerns Assessment Noted Time PHQ-9 Depression Total Score: 0 05/18/20 25 10:26 AM EDT documented as of this encounter Care Teams Cloth Inspector Relationship Specialty Start Date End Date Tuyet Schofield MD [address] [facility] [place] [address] PCP - General Internal Medicine 03/17/22 documented as of this encounter
[2025-07-08 18:23] VITALS: BP 147/86; PULSE 70; O2SAT 99; BMI 37.4
[2025-07-08 18:28] VITALS: BP 163/81; PULSE 64; RESP 16; TEMP 36.9; O2SAT 96
--- NOTE | 2025-07-08 18:34 | ECG_ITS ---
Test Reason : HYPERTENSION Blood Pressure : */* mmHG Vent. Rate : 60 BPM Atrial Rate : 60 BPM P-R Int : 174 ms QRS Dur : 88 ms QT Int : 432 ms P-R-T Axes : 18 -5 27 degrees QTcB Int : 432 ms Sinus rhythm with occasional Premature ventricular complexes Inferior infarct (cited on or before 15-Feb-2021) Anterior infarct (cited on or before 15-Feb-2021) Abnormal ECG When compared with ECG of 15-Feb-2021 21:28, Premature ventricular complexes are now Present Referred By: Generic ED Physician Electronically Signed By: CARLOS REILLY
--- OUTSIDE RECORDS SUMMARY | 2025-07-08 19:01 | XMS_ITS | Clinical Summary ---
Author Organization [facility] [employer] [facility] Address [address] [facility] [address] [place] [address] Care Team Providers Care Patient Financial Rep Name Role Phone Unavailable Primary Care Provider Unavailabl e Immunizations Immunization Administration Dates Next Due Pfizer Covid-19 Vaccine 12+ Bivalent 08/20/2022 Social History Tobacco Use Types Packs/Day Years Used Date Smoking Tobacco: Never Assessed Comments Unknown Sex and Gender Information Value Date Recorded Sex Assigned at Female 08/20/2022 1:45 PM EST Legal Sex Female 1:43 PM EST Gender Identity Female 08/20/2022 1:45 PM EST Sexual Orientation Not on file Plan of Treatment Health Maintenance Due Date Last Done Comments CT Colonography 1957 Colonoscopy 1957 Colorectal Cancer Screening 1957 Depression Screening 1957 FIT DNA/Cologuard 1957 FIT 1957 FOBT 1957 Lipid Panel 1957 SDOH Screening 1957 Sigmoidoscopy 1957 Alcohol/Substance Use Screening 1969 Tobacco Screening 1969 Hepatitis C Screening 1975 Mammogram 1997 DTaP/Tdap/Td Vaccines (1 - Tdap) 11/22/1997 11/21/1997 Pneumococcal Vaccine: 50+ Years (1 of 1 - PCV) 2007 Zoster Vaccines (1 of 2) 2007 COVID-19 Vaccine (4 - 2024-2 6 season) 2025 08/20/2022, 12/03/2020, 11/12/2020 Influenza Vaccine (#1) 2025 RSV Patients and Patients Aged 60 years or older (1 - 1-dose 75+ series) 2032 HIB Vaccines Aged Out No longer eligi ble based on patient's age to complete this topic HPV Vaccines Aged Out No longer eligi ble based on patient's age to complete this topic Hepatitis A Vaccines Aged Out No long er eligible based on patient's age to complete this topic Hepatitis B Vaccines Aged Out No long er eligible based on patient's age to complete this topic IPV Vaccines Aged Out No longer eligi ble based on patient's age to complete this topic Meningococcal B Vaccine Aged Out No l onger eligible based on patient's age to complete this topic Meningococcal Vaccine Aged Out No jayla daniel eligible based on patient's age to complete this topic RSV under 20 months Aged Out No longe r eligible based on patient's age to complete this topic Rotavirus Vaccines Aged Out No longer eligible based on patient's age to complete this topic
--- OUTSIDE RECORDS SUMMARY | 2025-07-08 19:01 | XMS_ITS ---
Author Name [facility] Organization Unknown Care Team Organization Name Specialty Phone Email Start Date End Da te [facility] MISSY STRICKLAND Primary Care [email or web address] 10/28/2022 4 [facility] Immanuel Quiros Primary Care 08/31/202203/23 4 [facility] ISADORA Grajeda Primary Care 06/30/202203/23 4
--- OUTSIDE RECORDS SUMMARY | 2025-07-08 19:02 | XMS_ITS | Clinical Summary ---
Author Organization [facility] [address] [place] [address] [place] [phone] Phone Care Team Providers Care Set Up Mold Technician Name Role Phone Tuyet Schofield MD Primary Care Pr ovider Allergies Active Allergy Reactions Criticality Noted Date Comments Penicillins Swelling 08/13/2014 Medications cholecalciferol (VITAMIN D-3) 50 mcg (2,000 unit) capsule Take 1 capsule (2,000 Units total) by mouth 1 (one) time each day. 4 Active meloxicam (Mobic) 15 mg tablet Take 1 tablet (15 mg total) by mouth 1 (one) time each day if needed. 4 Active calcium carb/vit D3/minerals (CALCIUM-VITAMIN D ORAL) Take by mouth. 3 Active amLODIPine (NORVASC) 10 mg tabletIndications :Primary hypertension Take 1 tablet (10 mg total) by mouth 1 (one) time each day. 90 each 1 5 11/15/19 26 Active atorvastatin (LIPITOR) 10 mg tabletIndications :Hypercholesterol emia Take 1 tablet (10 mg total) by mouth at bedtime. 90 each 1 5 11/15/19 26 Active metoprolol tartrate (LOPRESSOR) 25 mg tablet Take 1 tablet (25 mg total) by mouth 1 (one) time each day if needed (palps). Active aspirin 81 mg EC tablet Take 1 tablet (81 mg total) by mouth 1 (one) time each day. Active semaglutide (Wegovy) 0.25 mg/0.5 mL injection pen Inject 0.25 mg under the skin every 7 (seven) days. 4 mL 07/02/20 25 Discontinu ed(Therapy completed) Hospital, Clinic, or Other Facility Administered Medication Ordered Dose Route Frequency Start Date End Date Status perflutren lipid microsphere (DEFINITY) 1.3 mL in sodium chloride 0.9% 8.7 mL injection 10 mL IV Once in imaging 06/21/2025 06/21/2025 End ed perflutren lipid microsphere (DEFINITY) 1.3 mL in sodium chloride 0.9% 8.7 mL injection 10 mL IV Once in imaging 07/03/2025 07/03/2025 End ed Active Problems Problem Noted Date Diagnosed Date PVC (premature ventricular contraction) 07/26/20 Assessment & Plan (11/15/2024 12:22 PM EDT): Will start metoprolol for management of the PACs/PVCS She will keep her upcoming appointment with cardiology in December Orders: metoprolol succinate (TOPROL-XL) 25 mg 24 hr tablet; Take 1 tablet (25 mg total) by mouth 1 (one) time each day. Do not crush or chew. PAC (premature atrial contraction) 07/26/2024 Assessment & Plan (11/15/2024 12:22 PM EDT): Will start metoprolol for management of the PACs/PVCS She will keep her upcoming appointment with cardiology in December Orders: metoprolol succinate (TOPROL-XL) 25 mg 24 hr tablet; Take 1 tablet (25 mg total) by mouth 1 (one) time each day. Do not crush or chew. Hemangioma of spine 06/07/2024 Assessment & Plan (06/30/2024 1:47 PM EST): Ms. Hernandez mentioned to her primary that when she bumps into something with her right hip she gets fleeting pain that radiates around to the back. It does not last and it does not radiate down the legs. Chart reviewed by her primary care doctor revealed a CT of the chest from 2020 and of the abdomen and pelvis from 2019 revealed a T10 hemangioma. Based on that, a new CT scan of the thoracic spine was performed revealing several hemangiomas in the thoracic and cervical spine that were stable as compared to the 2020 study. Also noted were two lucent lesions. One in the left lamina of T5 and one in the body of T11 both of which were stable at 1 cm compared to CTs from 2020 and 2019 respectively. The films were reviewed with Dr. Mcdaniel who questioned whether the lucent lesions were really small hemangiomas. There were no associated fractures or remodeling of the bone. Dr. Mcdaniel felt that in the absence of symptoms these were not concerning. Ms. Watson did not have any pain with palpation in these areas and does not have any suspicious past medical history. I offered to get a bone scan out of absolute thoroughness but told her that I did not see anything worrisome. She declined the bone scan. With regards to her fleeting low back pain, I was not able to reproduce it with motion of the hip, palpation of the hip or low back, or palpation of the SI joints. She said that it was not something that generally caused her regular discomfort just fleeting pain when she hit the hip. At this point, I do not think that there is much more for us to offer, but I offered that she could follow-up on an as-needed basis. Essential tremor 05/17/2024 Overview (06/08/2024): Benign head tremor; chronic and familial Vitamin D insufficiency 12/06/2023 Assessment & Plan (11/15/2024 12:22 PM EDT): Continue vitamin D 2000U daily DJD (degenerative joint disease), ankle and foot 03/25/2023 Prediabetes 09/11/2022 Assessment & Plan (11/15/2024 12:22 PM EDT): Will update labs Orders: Hemoglobin A1c; Future Comprehensive metabolic panel; Future Osteopenia of multiple sites 08/04/2022 Assessment & Plan (11/15/2024 12:22 PM EDT): Continue vitamin D 2000U daily Has DXA scan scheduled for November 28 at [facility] Pulmonary nodule 03/15/2020 Overview (06/08/2024): Stable Ct Chest 03/2021. Repeat 1 year. Subclinical hypothyroidism 03/14/2019 Assessment & Plan (11/15/2024 12:22 PM EDT): Last TSH wnl Thyroid nodule 11/16/2014 Obesity 08/21/2014 Assessment & Plan (11/15/2024 12:22 PM EDT): See HPI Counseled on the possible side effects of medication Will trial ozempic Has upcoming appt with weight management in May Orders: semaglutide (OZEMPIC) 0.25 mg or 0.5 mg (2 mg/3 mL) injection pen; Inject under the skin every 7 (seven) days. HTN (hypertension) 08/13/2014 Assessment & Plan (07/02/2025 9:15 AM EST): Continue on amlodipine and metoprolol. I have reviewed with the patient the importance of a heart healthy lifestyle which includes eating a low-fat low-salt diet, getting regular exercise, maintaining a healthy weight, not smoking, and following up with routine medical care. Assessment & Plan (11/15/2024 12:22 PM EDT): Still poorly controlled Increase amlodipine to 10mg daily Start metoprolol 25mg daily F/u in 4 weeks Orders: amLODIPine (NORVASC) 10 mg tablet; Take 1 tablet (10 mg total) by mouth 1 (one) time each day. Hypercholesterolemia 08/13/2014 Assessment & Plan (07/02/2025 9:15 AM EST): Continue on statin. Assessment & Plan (11/15/2024 12:22 PM EDT): For now, continue atorvastatin 10 mg nightly Will update fasting labs Orders: Lipid panel with reflex to direct LDL; Future Comprehensive metabolic panel; Future Goiter 08/13/2014 Encounters Date Type Department Care Team Description 07/05/2025 10:20 AM EST - 07/05/2025 11:59 PM EST Hospital Encounter Radiology Department - [address] [phone] Abnormal liver ultrasound Discharge Disposition: Home or Self Care 07/03/2025 9:00 AM EST Ancillary Procedure [facility] - [address] [place] [address] PVC (premature ventricular contraction); Palpitations 07/02/2025 8:10 AM EST Office Visit [facility] - [address] [place] [address] Felicia Cornell NP Pressure in chest (Primary Dx); Abnormal stress echo; Primary hypertension; Hypercholesterolemi a; Palpitations 06/21/2025 2:30 PM EDT Ancillary Procedure [facility] - [address] [place] [phone] Primary hypertension; Hypercholesterolemi a; Pressure in chest 06/01/2025 Telephone Bariatric Surgery - [place] [address] [place] [phone] Michelle García PA 05/31/2025 9:12 AM EDT - 05/31/2025 11:59 PM EDT Hospital Encounter Radiology Department - [address] [phone] Episode of dizziness; Blurred vision, bilateral Discharge Disposition: Home or Self Care 05/31/2025 9:11 AM EDT - 05/31/2025 11:59 PM EDT Hospital Encounter Radiology Department - [address] [phone] Hepatic steatosis Discharge Disposition: Home or Self Care 05/30/2025 10:30 AM EDT Consult Bariatric Surgery [facility] [address] [place] [phone] Michelle García PA Class 2 severe obesity due to excess calories with serious comorbidity and body mass index (BMI) of 37.0 to 37.9 in adult (Primary Dx); Primary hypertension; Hypercholesterolemi a; Prediabetes 05/24/2025 Results Follow-Up [address] [phone] Felicia Goldsmith PA 05/21/2025 10:41 AM EDT - 05/21/2025 11:59 PM EDT Hospital Encounter CT Scan [address] [phone] Episode of dizziness; Blurred vision, bilateral Discharge Disposition: Home or Self Care 05/18/2025 10:00 AM EDT Office Visit [address] [phone] Felicia Goldsmith PA Annual physical exam (Primary Dx); Primary hypertension; Hypercholesterolemi a; Prediabetes; Episode of dizziness; Blurred vision, bilateral; Pressure in chest; Nocturia; Hepatic steatosis; Elevated alkaline phosphatase level from Last 3 Months Immunizations Immunization Administration Dates Next Due Pneumococcal conjugate 20 va lent (Prevnar 20, PCV 20) 2mo and older 09/25/2022 Td Tetanus diptheria (Tdvax) 7yo and older 03/03,11/21/1997 Tdap Tetanus diptheria acell ular pertussis (Boostrix; Adacel) 7yo and older 03/12/2008 Surgical History Surgery Date Site/Laterality Comments HYSTERECTOMY 03/23/1994 PROCEDURE: HISTORICAL HYSTERECTOMY; COMMENT: 1 ovary left OTHER SURGICAL HISTORY 11/09/2019 Right PROCEDURE: [place] SALPINGO-OOPHORECTOMY COMPL/PRTL UNI/BI SPX; COMMENT: left removed with hysterectomy in 1993 Medical History Medical History Date Comments Hypercholesterolemia 08/13/2014 DX:Hypercho lesterolemia HTN (hypertension) 08/13/2014 DX:HTN (hyper tension) Goiter 08/13/2014 DX:Goiter Ovarian mass DX:Ovarian mass; COMMENT: Removed 10/2019. Benign Family History Medical History Relation Name Comments Coronary artery disease Father age 49 Hypertension Mother BCC on nose Other: cancer ovary Sister age 57 Breast cancer Neg Hx Colon cancer Neg Hx Lung cancer Neg Hx Relation Name Status Comments Father Mother Alive Sister Social History Tobacco Use Types Packs/Day Years Used Date Smoking Tobacco: Never Smokeless Tobacco: Never Tobacco Cessation:Counseling Given: Not Answered Alcohol Use Standard Drinks/Week Comments Yes 0 [...] for your loved ones. For example, child psychometrist or elderly care for an older adult? [...] on file Sexual Orientation Not on file Obstetrics History Last Filed Vital Signs Vital Sign Reading Time Taken Comments Blood Pressure 141/84 07/03/2025 9:12 AM EST Pulse 78 07/02/2025 8:14 AM EST Temperature 36.4 C (97.6 F) 05/30/2025 10:22 AM EDT Respiratory Rate 14 12/14/2024 9:15 AM EDT Oxygen Saturation 98% 07/02/2025 8:14 AM EST Inhaled Oxygen Concentration - - Weight 100 kg (221 lb) 07/03/2025 9:12 AM EST Height 165.1 cm (5' 5 ) 07/03/2025 9:12 AM EST Body Mass Index 36.78 07/03/2025 9:12 AM EST Plan of Treatment Upcoming Encounters Date Type Department Care Team (Late st Contact Info) Description 08/14/2025 11:00 AM EST Office Visit Urogynecology [address] [phone] Linda Sharp MD [address] [place] [address] [address] [place] [address] 09/03/2025 1:10 PM EST Office Visit [facility] [address] [place] [phone] Felicia Cornell NP [address] [place] [address] [address] [place] [address] 09/20/2025 2:00 PM EST Consult [facility] [place] - [place] [address] [place] [phone] Arun Pierce MD [address] [place] [address] 10/30/2025 3:15 PM EDT Office Visit Bariatric Surgery - [place] [address] [place] [address] Michelle García PA [address] [place] [address] 11/15/2025 11:00 AM EDT Office Visit Adult Medicine [facility] [address] [place] [address] Tuyet Schofield MD [address] [place] [address] Health Maintenance Due Date Last Done Comments RSV Immunization Adult Patients (1 - Risk 50-74 years 1-dose series) 2007 Zoster Vaccines (1 of 2) 2007 Falls Risk Assessment 08/01/2022 Medicare Annual Wellness Visit 08/01/2022 Colorectal Cancer Screening: FIT-DNA (Cologuard) 10/30/2025 10/30/2022, 10/30/2022 Hypertension/CHF/CAD Annual BMP Blood Test 05/18/2026 05/18/2025, 11/20/2024, 05/16/2024, Additional history exists Social Influencers of Health Screening 05/18/2026 05/18/2025 Breast Cancer Screening 11/17/2026 11/17/2024, 12/02 DTaP,Tdap,and Td Vaccines (4 - Td or Tdap) 03/03/2029 03/03/2019, 03/12/2008, 11/21/1997 Cholesterol Screening (Lipid Panel) 05/18/2030 05/18/2025, 11/20/2024, 05/16/2024, Additional history exists Osteoporosis Screening (Bone Density Screening) 12/21/2034 12/21/2024, 08/03/2022 Hepatitis C Screening Completed 09/12/2014 COVID-19 Vaccine Discontinued 08/20/2022, 04/2021, 12/03/2020, Additional history exists Pneumococcal Vaccine: 50+ Years Completed 09/25/2022 Depression Screening Completed 05/18/2025 HIB Vaccines Aged Out No longer eligi [...] on patient's age to complete this topic Influenza Vaccine Discontinued MMR Vaccines Aged Out No longer eligi ble based on patient's age to complete this topic Meningococcal ACWY Vaccine Aged Out N o longer eligible based on patient's age to complete this topic Meningococcal B Vaccine Aged Out No l onger eligible based on patient's age to complete this topic RSV Immunization Patients Under 20 months Aged Out No longer eligible based on patient's age to complete this topic Varicella Vaccines Aged Out No longer eligible based on patient's age to complete this topic Procedures Procedure Name Priority Date/Time Associated Diagnosis Comments MR ABDOMEN WO CONTRAST Routine 5 11:23 AM EST Abnormal liver ultrasound TRANSTHORACIC ECHOCARDIOGRAM (TTE) COMPLETE W/ CONTRAST Routine 07/03/2025 2:08 PM EST PVC (premature ventricular contraction) Palpitations STRESS ECHOCARDIOGRAM EXERCISE WITH CONTRAST Routine 06/21/2025 3:21 PM EDT Primary hypertension Hypercholesterolemia Pressure in chest VAS US DUPLEX CAROTID BILATERAL Routine 05/31/2025 9:59 AM EDT Episode of dizziness Blurred vision, bilateral US ABDOMEN LIMITED Routine 05/31/2025 9: 59 AM EDT Hepatic steatosis CT HEAD WO CONTRAST Routine 05/21/2025 1 0:43 AM EDT Episode of dizziness Blurred vision, bilateral ECG 12-LEAD TRACING ONLY Routine 05/18/2025 4:22 PM EDT Pressure in chest CBC WITH AUTO DIFFERENTIAL Routine 05/18/2025 10:51 AM EDT Annual physical exam CBC AND DIFFERENTIAL Routine 05/18/2025 10:51 AM EDT Annual physical exam COMPREHENSIVE METABOLIC PANEL Routine 05/18/2025 10:51 AM EDT Primary hypertension HEMOGLOBIN A1C Routine 05/18/2025 10:51 AM EDT Prediabetes THYROID STIMULATING HORMONE WITH REFLEX TO FREE T4 AND FREE T3 Routine 05/18/2025 10:51 AM EDT Annual physical exam LIPID PANEL WITH REFLEX TO DIRECT LDL Routine 05/18/2025 10:51 AM EDT Hypercholesterolemia PARATHYROID HORMONE INTACT Routine 05/18/2025 10:51 AM EDT Elevated alkaline phosphatase level BD BONE DENSITY DXA AXIAL SKELETON Routine 12/21/2024 11:09 AM EDT Other specified disorders of bone density and structure, unspecified site EXTERNAL MAMMOGRAM REPORT 11/17/2024 FIT-DNA Routine 10/30/2022 HEPATITIS C SCREENING Routine 09/12/2014 from Last 3 Months or Most Recently Relevant to Health Maintenance Results * MR Abdomen wo Contrast (07/05/2025 11:23 AM EST) Anatomical Region Laterality Modality Body Magnetic Resonan ce 07/05/2025 2:36 PM EST Impressions 07/05/2025 2:50 PM EST [...] Signed Date: 07/05/2025 14:50 ET Workstation ID: [id number] Transcribed By: Self Edit Transcribed Date: 07/05/2025 [...] kidney, statistically representing a cyst. There are [id number] likely representing parapelvic cysts in both kidneys. [...] Signed Date: 07/05/2025 14:50 ET Workstation ID: [id number] Transcribed By: Self Edit Transcribed Date: 07/05/2025 14:36 ET Felicia MOREL IMG MRI PROCEDURES Final Resu lt * (ABNORMAL) TRANSTHORACIC ECHOCARDIOGRAM (TTE) COMPLETE W/ CONTRAST (07/03/2025 2:08 PM EST) Left Atrium Minor [place] 6.1 cm CV PACS Left Atrium Major [place] 6.3 cm CV PACS LA Area Sys [...] Volume 83 mL CV PACS MV Deceleration [place] 4.0 m/s2 CV PACS E Wave Deceleration [...] MD CV ECHO PROCEDURES Final Resul t * (ABNORMAL) STRESS ECHOCARDIOGRAM EXERCISE WITH CONTRAST (06/21/2025 3:21 PM EDT) IVSD 0.9 0.6 - 0.9 cm CV PACS STRESS LVIDD 5.3(A) 3.8 - 5.2 cm CV PACS STRESS LVIDS 3.1 2.2 - 3.5 cm CV PACS STRESS LVPWD 0.9 0.6 - 0.9 cm CV PACS STRESS Relative Wall Thickness ratio 0.34 CV PACS STRESS FS 42 % CV PACS STRESS LV Mass 2D 175 g CV PACS STRESS LVIDD Index 2.56 cm/m2 CV PACS STRESS LVIDS Index 1.50 cm/m2 CV PACS STRESS LV Mass Index 2D 84 g/m2 CV PACS STRESS BSA 2.15 m2 CV PACS STRESS Target HR 129 bpm CV PACS STRESS Baseline HR 62 bpm CV PACS STRESS Baseline SBP 130 mmHg CV PACS STRESS Baseline DBP 86 mmHg CV PACS STRESS Peak HR 139 bpm CV PACS STRESS Peak SBP 160 mmHg CV PACS STRESS Peak DBP 80 mmHg CV PACS STRESS Rate Pressure Product 22,240.0 mmHg*bpm CV PACS STRESS Percent HR 91 % CV PACS STRESS Exercise/injec tion duration (min) 6 min CV PACS STRESS Exercise/injec tion duration (sec) 0 sec CV PACS STRESS Estimated workload 7.1 METS CV PACS STRESS Angina Index 0 CV PACS STRESS Anatomical Region Laterality Modality Ultrasound Narrative 06/21/2025 4:33 PM EDT Normal resting echo with preserved ejection fraction and no regional wall motion abnormalities. The ejection fraction is 60-65%. No obvious, significant valvular disease. The patient exercised on the treadmill on a Houston protocol for 6 minutes 0 seconds reaching at a workload of 7.1 METS. The patient had fatigue. The baseline EKG was normal sinus rhythm there were slight ST depression in the inferior leads noted. Post to stress echocardiogram showed hypokinesis/dyskinesis of the inferolateral wall suggestive of ischemia. Impression: Abnormal stress echocardiogram with mid inferolateral ischemia. Normal hemodynamic response to stress. Study Details Overall the study quality was technically difficult. Definity contrast was given to enhance imaging. Study was difficult due to: poor endocardial visualization and patient body habitus. Stress Findings A Houston protocol stress test was performed. Overall, the patient's exercise capacity was average. The patient reached stage 2. Total stress time was 6 min and 0 sec. The patient experienced no angina during the test. The test was stopped because the patient experienced fatigue. The patient's hemodynamic response was adequate for diagnosis. Blood pressure demonstrated a normal response. Heart rate demonstrated a normal response. The patient reported no symptoms during the stress test. ECG 70 yo female with multiple cardiac risk factors and atypical chest pain. Previously evaluated by Dr. Locke for palpitations. The ECG shows normal sinus rhythm. Low voltage QRS in precordial leads. Possible anterior CO pattern. There were no arrhythmias during stress. Arrhythmias during recovery: occasional premature ventricular contractions (PVCs). The result of the stress ECG was borderline with 0.[address] depression noted in the inferior leads. ECG changes returned to baseline quickly in recovery. us Felicia MOREL CV ECHO PROCEDURES Final Resu lt * Vascular US duplex carotid bilateral (05/31/2025 9:59 AM EDT) Anatomical Region Laterality Modality Vascular, Abdomen Ultrasound 05/31/2025 4:03 PM EDT Impressions 05/31/2025 4:06 PM EDT Normal exam. This is considered 0-49% stenosis by ICA peak systolic velocity and ICA/CCA peak systolic velocity ratio criteria. Incidental left thyroid nodule. The patient has had bilateral thyroid nodules documented on prior thyroid ultrasound, most recent of 05/19/2024. -------- FINAL REPORT -------- Dictated By: Vijaya Mendez Dictated Date: 05/31/2025 16:03 ET Assigned Physician: Vijaya Mendez Reviewed and Electronically Signed By: Vijaya Mendez Signed Date: 05/31/2025 16:06 ET Workstation ID: [id number] Transcribed By: Self Edit Transcribed Date: 05/31/2025 16:03 ET Narrative 05/31/2025 4:06 PM EDT VAS US DUPLEX CAROTID BILATERAL BILATERAL CAROTID ARTERIAL ULTRASOUND Clinical History: Blurred vision. Hypertension. Dizziness. Comparison: None. Technique and Findings: Bravo scale, color and pulsed Doppler imaging were utilized. The carotid arteries are clean. Both carotid systems demonstrate normal waveforms with brisk systolic upstrokes. Measured peak systolic velocities are as follows: Right ICA: 84 cm/s. Right ICA/CCA ratio: 1.2. Left ICA: 84 cm/s. Left ICA/CCA ratio: 1.1. Both vertebral arteries demonstrate normal antegrade flow. A left thyroid nodule is incidentally noted but not documented. Procedure Note Vijaya Mendez MD - 05/31/2025 VAS US DUPLEX CAROTID BILATERAL BILATERAL CAROTID ARTERIAL ULTRASOUND Clinical History: Blurred vision. Hypertension. Dizziness. Comparison: None. Technique and Findings: Bravo scale, color and pulsed Doppler imaging wereutilized. The carotid arteries are clean. Both carotid systems demonstrate normalwaveforms with brisk systolic upstrokes. Measured peak systolic velocities are as follows: Right ICA: 84 cm/s. Right ICA/CCA ratio: 1.2. Left ICA: 84 cm/s. Left ICA/CCA ratio: 1.1. Both vertebral arteries demonstrate normal antegrade flow. A left thyroid nodule is incidentally noted but not documented. IMPRESSION: Normal exam. This is considered 0-49% stenosis by ICA peak systolicvelocity and ICA/CCA peak systolic velocity ratio criteria. Incidental left thyroid nodule. The patient has had bilateral thyroidnodules documented on prior thyroid ultrasound, most recent of05/19/2024. -------- FINAL REPORT -------- Dictated By: Vijaya Mendez Dictated Date: 05/31/2025 16:03 ET Assigned Physician: Vijaya Mendez Reviewed and Electronically Signed By: Vijaya Mendez Signed Date: 05/31/2025 16:06 ET Workstation ID: [id number] Transcribed By: Self Edit Transcribed Date: 05/31/2025 16:03 ET us Felicia MOREL CV VASCULAR PROCEDURES Final Result * US Abdomen Limited (05/31/2025 9:59 AM EDT) Anatomical Region Laterality Modality Body Ultrasound 05/31/2025 4:06 PM EDT Impressions 05/31/2025 4:10 PM EDT Hepatic steatosis with focal fatty sparing. 1.2 x 0.8 x 1.2 cm hypoechoic area in the right lobe of the liver which could represent mass versus focal fatty sparing. MRI suggested. -------- FINAL REPORT -------- Dictated By: Vijaya Mendez Dictated Date: 05/31/2025 16:06 ET Assigned Physician: Vijaya Mendez Reviewed and Electronically Signed By: Vijaya Mendez Signed Date: 05/31/2025 16:10 ET Workstation ID: [id number] Transcribed By: Self Edit Transcribed Date: 05/31/2025 16:06 ET Narrative 05/31/2025 4:10 PM EDT ABDOMINAL ULTRASOUND-LIMITED History: History fatty liver. Comparison: CT abdomen and pelvis 11/06/2019. FINDINGS: There is no evidence of cholelithiasis. The common bile duct is not dilated, measuring 3 mm. The gallbladder wall is not thickened. No pericholecystic fluid is seen. No ascites are seen. The visualized pancreas is normal in size and demonstrates normal echotexture. The liver demonstrates echogenic echotexture with focal fatty sparing near the gallbladder. 0.6 x 0.5 x 0.5 cm cyst left lobe of liver. 1.2 x 0.8 x 1.2 cm hypoechoic area in the right lobe which could represent mass versus focal fatty sparing. There is no evidence of intrahepatic ductal dilation. Normal hepatopedal flow is seen in the main portal vein. No evidence of hydronephrosis, mass, or calculus was seen in the right kidney. The right kidney measures cm in greatest length. Procedure Note Vijaya Mendez MD - 05/31/2025 ABDOMINAL ULTRASOUND-LIMITED History: History fatty liver. Comparison: CT abdomen and pelvis 11/06/2019. FINDINGS: There is no evidence of cholelithiasis. The common bile duct isnot dilated, measuring 3 mm. The gallbladder wall is not thickened. Nopericholecystic fluid is seen. No ascites are seen. The visualized pancreas is normal in size and demonstrates normalechotexture. The liver demonstrates echogenic echotexture with focal fatty sparing nearthe gallbladder. 0.6 x 0.5 x 0.5 cm cyst left lobe of liver. 1.2 x 0.8 x 1.2 cm hypoechoicarea in the right lobe which could represent mass versus focal fattysparing. There is no evidence of intrahepatic ductal dilation. Normal hepatopedalflow is seen in the main portal vein. No evidence of hydronephrosis, mass, or calculus was seen in the rightkidney. The right kidney measures cm in greatest length. IMPRESSION: Hepatic steatosis with focal fatty sparing. 1.2 x 0.8 x 1.2 cm hypoechoicarea in the right lobe of the liver which could represent mass versusfocal fatty sparing. MRI suggested. -------- FINAL REPORT -------- Dictated By: Vijaya Mendez Dictated Date: 05/31/2025 16:06 ET Assigned Physician: Vijaya Mendez Reviewed and Electronically Signed By: Vijaya Mendez Signed Date: 05/31/2025 16:10 ET Workstation ID: [id number] Transcribed By: Self Edit Transcribed Date: 05/31/2025 16:06 ET us Felicia MOREL IMG US PROCEDURES Final Resul t * CT Head wo Contrast (05/21/2025 10:43 AM EDT) Anatomical Region Laterality Modality Head and Neck Computed Tomogra phy 05/21/2025 1:24 PM EDT Impressions 05/21/2025 1:29 PM EDT Impression: 1. No acute intracranial process 2. Chronic changes as above. -------- FINAL REPORT -------- Dictated By: Chelsey Breaux Dictated Date: 05/21/2025 13:24 ET Assigned Physician: Chelsey Breaux Reviewed and Electronically Signed By: Chelsey Breaux Signed Date: 05/21/2025 13:29 ET Workstation ID: [id number] Transcribed By: Self Edit Transcribed Date: 05/21/2025 13:24 ET Narrative 05/21/2025 1:[address] head Comparison:None Clinical history: episode of blurred vision, dizziness. hx HTN Technique: Multiple, noncontrasted axial CT images were obtained from the skull base to the cranial vertex. Findings: There are no abnormal intra or extra-axial fluid collection, midline shift or mass effect. Bravo-white differentiation is well-preserved. The ventricular system is prominent commensurate with the degree of volume loss for patient's stated age. Periventricular and supraventricular white matter hypodensity is present, nonspecific in appearance but most likely representing microvascular ischemic changes. Atherosclerotic calcification is present within the carotid siphons. The paranasal sinuses and mastoid air cells are clear. Procedure Note Chelsey Breaux MD - 05/21/2025 CT head Comparison:None Clinical history: episode of blurred vision, dizziness. hx HTN Technique: Multiple, noncontrasted axial CT images were obtained from theskull base to the cranial vertex. Findings: There are no abnormal intra or extra-axial fluid collection, midline shiftor mass effect. Bravo-white differentiation is well-preserved. Theventricular system is prominent commensurate with the degree of volumeloss for patient's stated age. Periventricular and supraventricular white matter hypodensity is present,nonspecific in appearance but most likely representing microvascularischemic changes. Atherosclerotic calcification is present within thecarotid siphons. The paranasal sinuses and mastoid air cells are clear. IMPRESSION: Impression: 1. No acute intracranial process 2. Chronic changes as above. -------- FINAL REPORT -------- Dictated By: Chelsey Breaux Dictated Date: 05/21/2025 13:24 ET Assigned Physician: Chelsey Breaux Reviewed and Electronically Signed By: Chelsey Breaux Signed Date: 05/21/2025 13:29 ET Workstation ID: [id number] Transcribed By: Self Edit Transcribed Date: 05/21/2025 13:24 ET us Felicia MOREL IMG CT PROCEDURES Final Resul t * ECG 12 lead Tracing Only (05/18/2025 4:22 PM EDT) us Felicia MOREL ECG ORDERABLES Final Result * Thyroid stimulating hormone with reflex to free t4 and free t3 (05/18/2025 10:51 AM EDT) [facility] TSH 2.95 0.40 - 4.00 mcIU/mL LAB CHEMISTRY METHOD 05/18/2025 7:26 PM EDT [facility] Blood Venous blood specimen / Unknown Venipuncture / Unknown 05/18/2025 10:51 AM EDT 05/18/2025 10:51 AM EDT us Felicia MOREL LAB BLOOD ORDERABLES Final Re sult [facility] [address] [place] [address], * Lipid panel with reflex to direct LDL (05/18/2025 10:51 AM EDT) [facility] Cholesterol 191 0 - 200 mg/dL LAB CHEMISTRY METHOD 05/18/2025 4:59 PM EDT [facility] Triglycerides 128 0 - 150 mg/dL LAB CHEMISTRY METHOD 05/18/2025 4:59 PM EDT [facility] HDL 72 >=40 mg/dL LAB CHEMISTRY METHOD 05/18/2025 4:59 PM EDT [facility] LDL Calculated 93 0 - 100 mg/dL LAB CHEMISTRY METHOD 05/18/2025 4:59 PM EDT [facility] Comment:Estimated LDL Calcul ated using equation: Total cholesterol - HDL cholesterol - (Triglycerides/5) VLDL Cholesterol Flex 25.6 mg/dL LAB CHEMISTRY METHOD 05/18/2025 4:59 PM EDT [facility] Non HDL Chol. (LDL+VLDL) 119 <145 mg/dL LAB CHEMISTRY METHOD 05/18/2025 4:59 PM EDT [facility] Chol/HDL Ratio 2.7 0.0 - 4.4 LAB CHEMISTRY METHOD 05/18/2025 4:59 PM EDT [facility] Blood Venous blood specimen / Unknown Venipuncture / Unknown 05/18/2025 10:51 AM EDT 05/18/2025 10:51 AM EDT us Felicia MOREL LAB BLOOD ORDERABLES Final Re sult [facility] [address] [place] [address], * (ABNORMAL) CBC auto differential (05/18/2025 10:51 AM EDT) WBC 9.1 4.8 - 10.8 K/mcL LAB HEMETOLOGY METHOD 05/18/2025 12:25 PM EDT [facility] RBC 4.80 3.80 - 4.80 M/mcL LAB HEMETOLOGY METHOD 05/18/2025 12:25 PM EDT [facility] Hemoglobin 14.8 11.5 - 16.0 g/dL LAB HEMETOLOGY METHOD 05/18/2025 12:25 PM EDT [facility] Hematocrit 44.6 35.0 - 47.0 % LAB HEMETOLOGY METHOD 05/18/2025 12:25 PM EDT [facility] MCV 93.1 79.0 - 98.0 FL LAB HEMETOLOGY METHOD 05/18/2025 12:25 PM EDT [facility] MCH 30.9 27.0 - 32.0 pcg LAB HEMETOLOGY METHOD 05/18/2025 12:25 PM EDT [facility] MCHC 33.2 32.0 - 37.0 g/dL LAB HEMETOLOGY METHOD 05/18/2025 12:25 PM EDT [facility] RDW 13.1 11.0 - 15.0 % LAB HEMETOLOGY METHOD 05/18/2025 12:25 PM EDT [facility] Platelets 228 130 - 400 K/mcL LAB HEMETOLOGY METHOD 05/18/2025 12:25 PM [facility] MPV 11.4(H) 7.0 - 11.0 FL LAB HEMETOLOGY METHOD 05/18/2025 12:25 PM EDT [facility] NRBC 0.0 <1.0 % LAB HEMETOLOGY METHOD 05/18/2025 12:25 PM EDT [facility] NRBC Absolute 0.00 <0.10 K/mcL LAB HEMETOLOGY METHOD 05/18/2025 12:25 PM [facility] Neutrophils Relative 71.1 % LAB HEMETOLOGY METHOD 05/18/2025 12:25 PM [facility] Lymphocytes Relative 15.7 % LAB HEMETOLOGY METHOD 05/18/2025 12:25 PM [facility] Monocytes Relative 11.0 % LAB HEMETOLOGY METHOD 05/18/2025 12:25 PM [facility] Eosinophils Relative 1.3 % LAB HEMETOLOGY METHOD 05/18/2025 12:25 PM [facility] Basophils Relative 0.7 % LAB HEMETOLOGY METHOD 05/18/2025 12:25 PM [facility] Immature Granulocytes Relative 0.2 % LAB [facility]EMETOLOGY [facility] Neutrophils Absolute 6.45 1.50 - 7.00 K/mcL LAB HEMETOLOGY METHOD 05/18[facility]2025 12[facility] Lymphocytes Absolute 1.42 1.00 - 5.00 K/mcL LAB HEMETOLOGY METHOD 05/18/2025 12:25 PM EDT [facility] Monocytes Absolute 1.00 0.20 - 1.00 K/mcL LAB HEMETOLOGY METHOD 05/18/2025 12:25 PM EDT [facility] Eosinophils Absolute 0.12 0.00 - 0.50 K/[facility] LAB HEMETOLOGY METHOD 05/18/2025 12:25 PM EDT [facility] Basophils Absolute 0.06 0.00 - 0.20 K/[facility] LAB HEMETOLOGY METHOD 05/18/2025 12:25 PM EDT [facility] Immature Granulocytes Absolute 0.02 0.00 - 0.03 K/[facility] LAB HEMETOLOGY METHOD 05/18/2025 12:25 PM EDT [facility] Blood Venous blood specimen / Unknown Venipuncture / Unknown 05/18/2025 10:51 AM EDT 05/18/2025 10:51 AM EDT Felicia MOREL LAB BLOOD ORDERABLES Final Re sult [facility] [address] [place] [address], [place] [phone] * Parathyroid hormone intact (05/18/2025 10:51 AM EDT) PTH 82.6 18.5 - 88.0 pcg/mL LAB CHEMISTRY METHOD 05/18/2025 8:12 PM EDT [facility] Blood Venous blood specimen / Unknown Venipuncture / Unknown 05/18/2025 10:51 AM EDT 05/18/2025 10:51 AM EDT us Felicia MOREL LAB BLOOD ORDERABLES Final Re sult [facility] [address] [place] [address], [place] [phone] * Hemoglobin A1c (05/18/2025 10:51 AM EDT) [facility] Hemoglobin A1C 5.7 <6.5 % LAB CHEMISTRY METHOD 05/18/2025 5:36 PM [facility] Mean Bld Glu Estim. 117 mg/dL LAB CHEMISTRY METHOD 05/18/2025 5:36 PM [facility] Blood Venous blood specimen / Unknown Venipuncture / Unknown 05/18/2025 10:51 AM EDT 05/18/2025 10:51 AM EDT us Felicia MOREL LAB BLOOD ORDERABLES Final Re sult [facility] [address] [place] [address], [place] [phone] * (ABNORMAL) Comprehensive metabolic panel (05/18/2025 10:51 AM EDT) [facility] Sodium 138 133 - 145 mmol/L LAB CHEMISTRY METHOD 05/18/2025 5:11 PM [facility] Potassium 4.0 3.5 - 5.5 mmol/L LAB CHEMISTRY METHOD 05/18/2025 5:11 PM [facility] Chloride 105 96 - 110 mmol/L LAB CHEMISTRY METHOD 05/18/2025 5:11 PM [facility] CO2 25 21 - 32 mmol/L LAB CHEMISTRY METHOD 05/18/2025 5:11 PM [facility] Anion Gap 8 3 - 11 LAB CHEMISTRY METHOD 05/18/2025 5:11 PM [facility] Glucose 96 70 - 100 mg/dL LAB CHEMISTRY METHOD 05/18/2025 5:11 PM [facility] BUN 15 5 - 25 mg/dL LAB CHEMISTRY METHOD 05/18/2025 5:11 PM [facility] Creatinine 0.93 0.50 - 1.10 mg/dL LAB CHEMISTRY METHOD 05/18/2025 5:11 PM [facility] eGFR 67 >=60 mL/min/1. 73m2 LAB CHEMISTRY METHOD 05/18/2025 5:11 PM [facility] Comment:Calculation based on the Chronic Kidney Disease Epidemiology Collaboration (CKD-EPI) equation refit without adjustment for race. BUN/Creatinine Ratio 16.1 LAB CHEMISTRY METHOD 05/18/2025 5:11 PM [facility] Calcium 9.8 8.5 - 10.5 mg/dL LAB CHEMISTRY METHOD 05/18/2025 5:11 PM [facility] AST (SGOT) 24 10 - 42 unit/L LAB CHEMISTRY METHOD 05/18/2025 5:11 PM [facility] ALT (SGPT) 39 10 - 60 unit/L LAB CHEMISTRY METHOD 05/18/2025 5:11 PM [facility] Alkaline Phosphatase 131(H) 42 - 121 unit/L LAB CHEMISTRY METHOD 05/18/2025 5:11 PM [facility] Total Protein 7.4 6.0 - 8.0 g/dL LAB CHEMISTRY METHOD 05/18/2025 5:11 PM [facility] Albumin 4.3 3.2 - 5.0 g/dL LAB CHEMISTRY METHOD 05/18/2025 5:11 PM [facility] Total Bilirubin 0.7 0.0 - 1.4 mg/dL LAB CHEMISTRY METHOD 05/18/2025 5:11 PM [facility] Blood Venous blood specimen / Unknown Venipuncture / Unknown 05/18/2025 10:51 AM EDT 05/18/2025 10:51 AM EDT us Felicia MOREL LAB BLOOD ORDERABLES Final Re sult [facility] [address] [place] [address], * BD Bone Density DXA Axial Skeleton (12/21/2024 11:09 AM EDT) Anatomical Region Laterality Modality Wrist, Hip, L-spine Bone Densito metry 12/21/2024 12:4 3 PM EDT Impressions 12/21/2024 12:44 PM EDT Impression: This patient is considered to have osteopenia by WHO criteria. This patient has a 7.8% risk of major osteoporotic fracture and a 0.7% risk of hip fracture over the next 10 years. (World Health Organization Fracture Risk Assessment) [facility] Department of Internal Medicine recommends using National Osteoporosis Foundation (NOF) guidelines in treatment decisions related to osteoporosis. NOF guidelines suggest considering treatment for postmenopausal women and men aged 50 or older presenting with the following: History of hip or vertebral fracture. T-score = -2.5 (DXA) at the femoral neck, total hip, or spine, after appropriate evaluation to exclude secondary causes. Low bone mass (T-score between -1.0 and -2.5 at the femoral neck or spine) AND a 10-year probability of a hip fracture = 3% OR a 10-year probability of a major osteoporosis-related fracture = 20% based on the [place]-adapted WHO algorithm Please note that all treatment decisions require clinical judgment and consideration of individual patient factors, including patient preferences, co-morbidities, previous drug use, risk factors not captured in the FRAX model (e.g., frailty, falls, vitamin D deficiency, increased bone turnover, interval significant decline in bone density) and possible under- or over-estimation of fracture risk by FRAX. Optional alternative screening schedule based on gail Pretty., [facility] September 10, 2011 for patients with osteopenia (based on hip BMD T-score) is as follows: * advanced osteopenia (T scores -2.00 to -2.49), BMD testing every year * moderate osteopenia (T scores -1.50 to -1.99), BMD testing every 5 years mild osteopenia or normal BMD (T scores -1.50 and higher), BMD testing every 15 years -------- FINAL REPORT -------- Dictated By: Vijaya Mendez Dictated Date: 12/21/2024 12:43 ET Assigned Physician: Vijaya Mendez Reviewed and Electronically Signed By: Vijaya Mendez Signed Date: 12/21/2024 12:44 ET Workstation ID: [id number] Transcribed By: Self Edit Transcribed Date: 12/21/2024 12:43 ET Narrative 12/21/2024 12:44 PM EDT BONE DENSITY (DEXA) Lumbar Spine T-score is -1.5. (SD relative to 20-29 y/o adult) Z-score is 0.4. (SD relative to age matched peers) This is considered osteopenia by WHO criteria. Left Hip T-score is -1.1. Z-score is 0.6. This is considered osteopenia by WHO criteria. Procedure Note Vijaya Mendez MD - 12/21/2024 BONE DENSITY (DEXA) Lumbar Spine T-score is -1.5. (SD relative to 20-29 y/o adult) Z-score is 0.4. (SD relative to age matched peers) This is considered osteopenia by WHO criteria. Left Hip T-score is -1.1. Z-score is 0.6. This is considered osteopenia by WHO criteria. IMPRESSION: Impression: This patient is considered to have osteopenia by WHO criteria. Thispatient has a 7.8% risk of major osteoporotic fracture and a 0.7% risk ofhip fracture over the next 10 years. (World Health Organization FractureRisk Assessment) [facility] Department of Internal Medicine recommendsusing National Osteoporosis Foundation (NOF) guidelines in treatmentdecisions related to osteoporosis. NOF guidelines suggest consideringtreatment for postmenopausal women and men aged 50 or older presentingwith the following: History of hip or vertebral fracture. T-score = -2.5 (DXA) at the femoral neck, total hip, or spine, afterappropriate evaluation to exclude secondary causes. Low bone mass (T-score between -1.0 and -2.5 at the femoral neck or spine)AND a 10-year probability of a hip fracture = 3% OR a 10-year probabilityof a major osteoporosis-related fracture = 20% based on the [place]-adapted WHOalgorithm Please note that all treatment decisions require clinical judgment andconsideration of individual patient factors, including patientpreferences, co-morbidities, previous drug use, risk factors not capturedin the FRAX model (e.g., frailty, falls, vitamin D deficiency, increasedbone turnover, interval significant decline in bone density) and possibleunder- or over-estimation of fracture risk by FRAX. Optional alternative screening schedule based on derrick Pretty al., [place] 2011 for patients with osteopenia (based on hip BMD T-score)is as follows: * advanced osteopenia (T scores -2.00 to -2.49), BMD testing every year * moderate osteopenia (T scores -1.50 to -1.99), BMD testing every 5years mild osteopenia or normal BMD (T scores -1.50 and higher), BMD testingevery 15 years -------- FINAL REPORT -------- Dictated By: Vijaya Mendez Dictated Date: 12/21/2024 12:43 ET Assigned Physician: Vijaya Mendez Reviewed and Electronically Signed By: Vijaya Mendez Signed Date: 12/21/2024 12:44 ET Workstation ID: [id number] Transcribed By: Self Edit Transcribed Date: 12/21/2024 12:43 ET Result [facility] Tuyet Schofield MD [facility] [place] DXA PROCEDUR ES Final Result * External Mammogram Report (11/17/2024) Anatomical Region Laterality Modality Mammography Provider Adia Onbase IM BI PROCEDURES Final Result * FIT-DNA (Cologuard) (10/30/2022) [facility] Colorectal Cancer Screening: FIT-DNA (Cologuard) abstract legacy epic Result [facility] Historical Provider HEALTH MAINTENANCE Final Result * Hepatitis C Screening (09/12/2014) [facility] Hepatitis C Screening abstracted Historical Gary KELLY HEALTH MAINTENANCE Final Result from Last 3 Months or Most Recently Relevant to Health Maintenance Insurance [employer] - [place] MEDICARE ADVANTAGE Care Teams Set Up Mold Technician Relationship Specialty Start Date End Date Tuyet Schofield MD [address] [place], [place] PCP - General Internal Medicine 03/17/22
--- OUTSIDE RECORDS SUMMARY | 2025-07-08 19:02 | XMS_ITS | Clinical Summary ---
Author Organization [facility] Address [address] [facility] [address] [place] [id number] Phone Care Team Providers Care Dispensary Technician Name Role Phone Tuyet Schofield MD Primary Care Pr ovider Allergies Active Allergy Reactions Criticality Noted Date Comments Penicillin Swelling 10/09/2021 Medications amLODIPine (NORVASC) 5 MG tablet Take 5 mg by mouth daily. Active atorvastatin (LIPITOR) 10 MG tablet Take 10 mg by mouth daily. Active naproxen (NAPROSYN) 500 MG tablet Take 1 tablet (500 mg total) by mouth 2 (two) times a day for 3 days. Then twice daily as needed for pain, inflammation 20 tablet 2 Active meclizine (ANTIVERT) 25 mg tablet Take 1 tablet (25 mg total) by mouth 3 (three) times a day as needed for dizziness. 12 tablet 2 Active Active Problems No known active problems Social History Tobacco Use Types Packs/Day Years Used Date Smoking Tobacco: Never Assessed Education Answer Date Recorded Are you interested in more education? Not on ursula e 12/19/2022 Are you concerned about learning? Not on file 12/19/2022 No 12/19/2022 No 12/19/2022 Digital Access Answer Date Recorded No 01/17/2023 No 01/17/2023 Reliable internet access at home? Not on file 01/17/2023 Device with a working camera? Not on file Comments Unknown Sex and Gender Information Value Date Recorded Sex Assigned at Not on file Legal Sex Female 3:49 PM EST Gender Identity Not on file Sexual Orientation Not on file Last Filed Vital Signs Vital Sign Reading Time Taken Comments Blood Pressure 157/98 07/23/2022 11:34 AM EST Pulse 70 07/23/2022 11:34 AM EST Temperature 36.8 C (98.2 F) 07/23/2022 11:34 AM EST Respiratory Rate 16 07/23/2022 11:34 AM EST Oxygen Saturation 98% 07/23/2022 11:34 AM EST Inhaled Oxygen Concentration - - Weight - - Height - - Body Mass Index - - Plan of Treatment Health Maintenance Due Date Last Done Comments LIPID PANEL 1957 DEPRESSION SCREENING 1969 SMOKING Hx and SMOKELESS TOBACCO SCREENING 1970 HEPATITIS C SCREENING 1975 MAMMOGRAM 1997 COLOGUARD 2002 COLONOSCOPY 2002 COLORECTAL CANCER SCREENING 2002 FIT TEST 2002 FOBT 2002 SIGMOIDOSCOPY 2002 VIRTUAL COLONOSCOPY 2002 PNEUMOCOCCAL VACCINES (50+ years) (1 of 1 - PCV) 2007 ZOSTER VACCINES (1 of 2) 2007 Adult Td,Tdap Booster 11/22/2007 11/21/1997 OSTEOPOROSIS SCREENING INITI AL (ONE-TIME) 2022 INFLUENZA VACCINE (#1) 2025 COVID-19 VACCINE (3 - 2024-2 6 season) 2025 12/03/2020, 11/12/2020 RSV VACCINE (1 - 1-dose 75+ series) 2032 HEPATITIS A VACCINES Aged Out No long er eligible based on patient's age to complete this topic HIB VACCINES Aged Out No longer eligi ble based on patient's age to complete this topic IPV VACCINES Aged Out No longer eligi ble based on patient's age to complete this topic MENINGOCOCCAL VACCINES (ACWY) Aged Out No longer eligible based on patient's age to complete this topic MENINGOCOCCAL VACCINES (B) Aged Out N o longer eligible based on patient's age to complete this topic Medical Devices Not on file [facility] [place] [address] [place] [address] [place] [address] [place] [address] HMO POS HMO [place] [address] [place] [address] HMO POS HMO POS O POS Care Teams Dispensary Technician Relationship Specialty Start Date End Date Tuyet Schofield MD [address] [place] [id number] PCP - General Family Medicine 07/23/22 Additional Source Comments The information contained in this document represents components of the legal health record. It is not the complete legal health record.[facility]
[2025-07-08 20:09] VITALS: BP 136/65; PULSE 57; RESP 18; TEMP 36.5; O2SAT 92
[2025-07-08 21:11] VITALS: BP 159/73; PULSE 63
--- NOTE | 2025-07-08 21:31 | ED_ITS ---
HPI - General Adult General Chief complaint: General Medical Stated complaint: Not feeling well due to HTN BP:180/110 now 150/65 Time Seen by Provider: 07/08/25 20:38 History of Present Illness ED Provider: jada HPI narrative: 62-year-old female presents for generalized feeling ?off ?hypertensive at home 180/110 initially with the EMS directly 47/6 with treatments. Related Data Previous Rx's ?Medication ?Instructions ?Recorded omeprazole 20 mg tablet,delayed 20 mg PO DAILY #14 tab s 02/15/21 release cyclobenzaprine 10 mg tablet 10 mg PO TID PRN muscle s pasm #21 09/29/21 tabs naproxen 500 mg tablet 500 mg PO BID PRN pain 10 da ys #20 09/29/21 tabs prednisone 20 mg tablet 60 mg (3 x 20 mg) PO DAILY 5 days 09/29/21 #15 tabs Allergies Allergy/AdvReac Type Severity Reaction Status Date / Time Penicillins Allergy Severe Swelling Verified 07/08/25 18:31 [facility] Past Medical History Medical History HTN (hypertension) Hyperlipemia Surgical History History of bladder surgery History of partial hysterectomy Hx of removal of ovary Social History Social History Advance Directives: Yes Advance Directives Information Provided: No Advance Directives on File: No Physical Exam ED Exam Exam: EXAM: Gen: Alert, awake, well appearing, well hydrated. Head: Atraumatic Eyes: Anicteric, Normal conjunctiva. ENT: Moist mucosa, no pallor. ? Neck: Supple. Skin: ?No observable rash or bruising on exposed or examined skin Respiratory: Breathing comfortably, No distress.Clear to auscultation bilaterally, symmetric chest expansion, No wheeze, rales, ronchi. Cardiovascular: Regular rate and rhythm. No murmurs or rub. Well perfused periphery, warm extremities. No edema. ? Abdominal: No focal tenderness. Soft, no objective distension. No palpable masses or obvious organomegaly. ?No guarding, no rebound tenderness or other peritoneal findings. : No flank tenderness. Neuro: Alert. Gross movement of all extremities intact. ? Psych: Calm. Cooperative. MSK: No grossly visible deformity. Vital signs: See flowsheet Vital Signs: Vital Signs - 24 hr 07/08/25 18:28 07/08/25 20:09 07/08/25 21:11 Temperature 98.4 F 97.7 F Pulse Rate 64 57 63 Respiratory Rate 16 18 Blood Pressure 163/81 H 136/65 159/73 H Pulse Oximetry 96 92 Oxygen Delivery Method Room Air Room Air 07/08/25 22:15 Temperature Pulse Rate 67 Respiratory Rate 17 Blood Pressure 132/69 Pulse Oximetry 94 Oxygen Delivery Method Room Air BMI result Body Mass Index 37.4 Course Reevaluation(s) Reevaluation #1: After evaluation and discussing potential differential diagnoses the patient was not interested in getting lab workup including electrolytes troponin thyroid testing which I offered her at the bedside during our conversation Medical Decision Making Medical Decision Making MDM Narrative: Medical Decision Making: [age] female who presents with resolved mild rapid palpitations that is acute on chronic. Completely resolved prior to arrival. Hypertension measurement with the EMS isolated and now normotensive in the ED no chest pain no lightheadedness ECG with with sinus rhythm low voltage isolated PVC no ischemic changes Preliminary Favored Differential Diagnosis: Asymptomatic hypertension, palpitations possibly transient arrhythmia thyroid disorder electrolyte derangement etc. among additional considered etiologies Testing Interpreted Independently: ? EKG: sinus rhythm rate 60 no ischemic changes Q-waves lead 3 and AVF isolated PVC similar in appearance to 02/09/2021 Radiology or Lab testing Results Reviewed: ?See below for details Consults: ?See below for details Independent Historians/External Chart Reviews: ?See below for details Social Determinants of Health Impacting MDM/Planning: ?See below for details Discharge Plan Discharge Clinical Impression: Palpitations Patient Disposition: Home, Self-Care Instructions: Heart Palpitations (DC) Additional Instructions: DISCHARGE DIAGNOSES: Palpitations HISTORY OF PRESENTATION: ?Palpitations resolved EMERGENCY DEPARTMENT COURSE,TESTS, TREATMENTS: While in the ED today we offered lab work including thyroid cardiac testing you had declined this. You EKGs showed low voltage and an isolated PVC otherwise no abnormalities DISCHARGE MEDICATIONS: ?[We have made no changes to your regular medication regimen] FOLLOW-UP: ?Call your primary or general physician soon as possible to discuss your symptoms, your ED visit and to discuss follow up plans Call your cardiology team at [facility] you know follow up INSTRUCTIONS ?& RETURN PRECAUTIONS: If any symptoms change first call your primary physician, if it is after-hours your primary doctors office should have a provider distribution estimator you can speak with. If the symptoms are severe or very concerning to you then call 911 or return to the ED. [07] Vivek Allen MD Emergency Physician [facility] Prescriptions: No Action omeprazole 20 mg tablet,delayed release (DR/EC) 20 mg PO DAILY Qty: 14 0RF cyclobenzaprine 10 mg tablet 10 mg PO TID PRN (Reason: muscle spasm) Qty: 21 0RF Rx Instructions: side effect is drowsiness. Do not take at work or while driving. naproxen 500 mg tablet 500 mg PO BID PRN (Reason: pain) 10 Days Qty: 20 0RF prednisone 20 mg tablet 60 mg PO DAILY 5 Days Qty: 15 0RF Interventions: ED Discharge Assessment Last Done: 07/08/25 22:53 Discharge Date/Time: 07/08/25 22:53 Print Language: Yi
[2025-07-08 22:15] VITALS: BP 132/69; PULSE 67; RESP 17; O2SAT 94
--- NOTE | 2025-07-08 22:44 | PC.NURSE ---
pt requesting to leave at this time. MD offered labs to be done but doesn't want to wait. denied any and all c/o of pain or discomfort at this time. MD aware of all information and is updating chart at this time
[2025-07-08 22:53] VITALS: BP 132/69; PULSE 67; RESP 17; TEMP 36.6; O2SAT 94
== END 2025-07-08 22:53 | disposition home or self-care (01) ==
PROVIDERS: Emergency Provider Emergency Medicine; PCP Family Medicine
DX: R00.2 Palpitations (principal); I10 Essential (primary) hypertension; Z88.0 Allergy status to penicillin
CPT/HCPCS: 93005; 99283; 99284

== ENCOUNTER → 2025-07-08 18:34 | Outpatient (BNV) | payer MEDICARE, SELFPAY | PROVIDERS: Emergency Provider Emergency Medicine; PCP Family Medicine; Visit Provider Internal Medicine | DX: I49.3 Ventricular premature depolarization (principal); I25.2 Old myocardial infarction | CPT/HCPCS: 93010 ==